=== PATIENT | female | born 1950 | race Caucasian/White ===

== ENCOUNTER → 2017-12-27 10:07 | Outpatient (CLI) | payer MEDICARE, OTHER, SELFPAY ==
[2017-12-27 12:44] LABS: Cholesterol 190 mg/dL (200); High Density Lipoprotein 83 mg/dL; Triglycerides 68 mg/dL; Very Low Density Lipoprotein 14 mg/dL (5-40)
== END ==
PROVIDERS: Family Provider Family Medicine; PCP Family Medicine; Visit Provider Family Medicine
DX: E78.5 Hyperlipidemia, unspecified (principal)
CPT/HCPCS: 36415; 80061

== ENCOUNTER → 2018-05-01 11:10 | Outpatient (CLI) | payer MEDICARE, OTHER, SELFPAY ==
[2018-05-01 11:26] LABS: Absolute Lymphocyte Count 1.53 X10^3/ul (0.83-4.51); Absolute Neutrophil Count 3.6 X10^3/uL (2.0-7.7); Basophil# 0.02 X10^3/uL; Basophil% 0.3 % (0-1); Eosinophil# 0.07 X10^3/uL; Eosinophils% 1.1 % (0-5); Hematocrit 40.5 % (37-47); Hemoglobin 13.4 g/dl (12.0-15.0); Lymphocyte # 1.53 X10^3/ul (4.0); Lymphocyte % 24.1 % (19-41); Mean Corp Hgb Conc 33.1 g/gl (32-36); Mean Corpuscular Hgb 28.6 pg (27.0-32.0); Mean Corpuscular Volume 86.4 fL (81-99); Monocyte# 1.17 X10^3/uL; Monocyte% 18.4 % (0-10); Neutrophil # 3.55 X10^3/uL (2.7-7.7); Neutrophil % 55.8 % (47-70); Platelet Count 180 K/mm3 (150-450); RBC Distribution Width CV 13.6 % (11.6-14.6); Red Blood Count 4.69 M/mm3 (4.2-5.4); White Blood Count 6.4 K/mm3 (4.4-11.0)
[2018-05-01 11:27] LABS: POSITIVE COUNT NO; POSITIVE DIFFERENTIAL NO; POSITIVE MORPHOLOGY NO
[2018-05-01 11:41] LABS: ALB/GLOB Ratio 0.9 RATIO (0.9-2.4); AST(SGOT) 16 U/L (15-37); Alanine Aminotransfer ALT/SGPT 24 U/L (13-56); Albumin, Serum 3.5 g/dL (3.2-5.0); Alkaline Phosphatase 73 U/L (45-117); Anion Gap 11 (5-15); BUN 8 mg/dL (7-18); BUN/Creat Ratio 13.2 RATIO (10-20); Calcium,Total 9.2 mg/dL (8.5-10.1); Chloride 103 mmol/L (98-107); Creatinine, Serum 0.61 mg/dL (0.55-1.02); EST Glomerular Filtration Rate 105 mL/min (>60); Est Glom Filt Rate - Afr Amer 127 mL/min (>60); Glucose 109 mg/dL (74-106); Potassium 3.7 mmol/L (3.5-5.1); Protein, Total 7.5 g/dL (6.4-8.2); Sodium Level 140 mmol/L (136-145)
== END ==
PROVIDERS: Family Provider Family Medicine; PCP Family Medicine; Visit Provider Nurse Practitioner Gerontology
DX: R10.32 Left lower quadrant pain (principal); R19.7 Diarrhea, unspecified
CPT/HCPCS: 36415; 74177; 80053; 82274; 83630; 85025; 87177; 87209; 87493; 87506; Q9967

== ENCOUNTER 2018-05-04 13:06 | Emergency (ER) | payer MEDICARE, OTHER, SELFPAY ==
[2018-05-04 13:06] VITALS: BP 150/59; PULSE 89; RESP 14; TEMP 36.8; O2SAT 98; BMI 22.0
[2018-05-04 15:15] VITALS: RESP 16; O2SAT 97
[2018-05-04] MEDS: 0.9% Normal Saline 1,000 ML 999 ML IV ×2 (15:16→16:14)
[2018-05-04 15:32] LABS: Anion Gap 9 (5-15); BUN 8 mg/dL (7-18); BUN/Creat Ratio 13.9 RATIO (10-20); Calcium,Total 8.7 mg/dL (8.5-10.1); Chloride 104 mmol/L (98-107); Creatinine, Serum 0.58 mg/dL (0.55-1.02); EST Glomerular Filtration Rate 111 mL/min (>60); Est Glom Filt Rate - Afr Amer 135 mL/min (>60); Estimated Creatinine Clearance 43.19 ml/min; Glucose 120 mg/dL (74-106); Potassium 3.5 mmol/L (3.5-5.1); Sodium Level 141 mmol/L (136-145)
[2018-05-04 15:41] LABS: Absolute Lymphocyte Count 1.05 X10^3/ul (0.83-4.51); Basophil# 0.02 X10^3/uL; Basophil% 0.3 % (0-1); Eosinophil# 0.13 X10^3/uL; Eosinophils% 2.2 % (0-5); Hematocrit 37.7 % (37-47); Hemoglobin 12.3 g/dl (12.0-15.0); Lymphocyte # 1.05 X10^3/ul (4.0); Lymphocyte % 17.6 % (19-41); Mean Corp Hgb Conc 32.6 g/gl (32-36); Mean Corpuscular Volume 85.9 fL (81-99); Mean Platelet Vol. 9.7 fl (6.2-12.0); Monocyte# 0.73 X10^3/uL; Monocyte% 12.2 % (0-10); Neutrophil # 4.03 X10^3/uL (2.7-7.7); Neutrophil % 67.4 % (47-70); Platelet Count 216 K/mm3 (150-450); RBC Distribution Width CV 13.6 % (11.6-14.6); RBC Distribution Width SD 42.8 fl (35.1-43.9); Red Blood Count 4.39 M/mm3 (4.2-5.4)
[2018-05-04 15:45] LABS: POSITIVE COUNT NO; POSITIVE DIFFERENTIAL NO; POSITIVE MORPHOLOGY NO
--- NOTE | 2018-05-04 16:03 | ED.VISSUMM ---
- ER Visit Summary Date of Service: 05/04/18 Chief Complaint: Diarrhea History of Present Illness: The patient is a [address] Tyler Myers. Her daughter works for Dr. Sanderson. She reports she has diarrhea that began 2 weeks ago. She reports is having approximately 12 times per day. States that as that happens proxy 15-20 minutes after eating. She states it is green. No black tarry stools. She reports that she has left lower quadrant abdominal pain. She is placed on Cipro and Flagyl 3 days ago and states pain is much improved after the antibiotics. She denies any fever or chills. No nausea or vomiting. Patient denies sick contacts. Has not been camping out of the country. No possible bad food exposure. Does drink well water, but others at home due as well and they are not ill. No recent antibiotic use. Physical Examination: Vitals: Stable. Afebrile. General: Well-nourished and well-developed. Head: Normocephalic atraumatic. Neck: Supple, no lymphadenopathy. No JVD. Nontender. Cardiovascular: Regular rate and rhythm. No murmurs. Respiratory: No respiratory distress. Clear to auscultation bilaterally. Abdominal: Soft, mild left lower quadrant tenderness to palpation, nondistended, normal bowel sounds. No guarding, rebound, or peritoneal signs. Back: Nontender. Extremities: Nontender, no edema. Skin: Normal color, no rash. Neurologic: Alert and oriented ?3. Cranial nerves II through XII are intact. Normal strength and sensation. Psych: Normal affect. Test Results: CBC is remarkable for lymphocytes of 18 and monocytes of 12. Chem-7 is more for glucose 120. Prior labs were reviewed. May 01 patient had a C. difficile that was negative. Stool culture that was negative. She did have fecal leukocytes and Hemoccult positive. CT showed colitis of the left hemicolon down to the rectosigmoid junction. Emergency Department Course and Treatment: Patient was given 2 L normal saline. She refused pain and nausea medications. States that she has never had a colonoscopy. Treatment Plan: Patient will be discharged with instructions to continue to push fluids. Follow-up with Dr. Sanderson in 3-5 days for another exam. Return to the emergency department for any worsening symptoms. Disposition: To home in improved and stable condition. Impression: 1. Diarrhea. This note was generated with [employer] dictation software. It may contain incorrect words, spelling, and punctuation that were not noted in review of the chart prior to signing ED Disposition - Plan for ED Patient: Disposition: Home or Assisted Living Chief Complaint: Diarrhea Instructions: Self-Care for Vomiting and Diarrhea Referrals: Tyler Myers DO [Primary Care Provider] - Shanda Sanderson DO [NON-STAFF] - 3-5 Days
--- NOTE | 2018-05-04 16:07 | ED.DCSUM_ITS ---
- ER Visit Summary Date of Service: 05/04/18 Chief Complaint: Diarrhea History of Present Illness: The patient is a [address] Tyler Myers. Her daughter works for Dr. Sanderson. She reports she has diarrhea that began 2 weeks ago. She reports is having approximately 12 times per day. States that as that happens proxy 15-20 minutes after eating. She states it is green. No black tarry stools. She reports that she has left lower quadrant abdominal pain. She is placed on Cipro and Flagyl 3 days ago and states pain is much improved after the antibiotics. She denies any fever or chills. No nausea or vomiting. Patient denies sick contacts. Has not been camping out of the country. No possible bad food exposure. Does drink well water, but others at home due as well and they are not ill. No recent antibiotic use. Physical Examination: Vitals: Stable. Afebrile. General: Well-nourished and well-developed. Head: Normocephalic atraumatic. Neck: Supple, no lymphadenopathy. No JVD. Nontender. Cardiovascular: Regular rate and rhythm. No murmurs. Respiratory: No respiratory distress. Clear to auscultation bilaterally. Abdominal: Soft, mild left lower quadrant tenderness to palpation, nondistended , normal bowel sounds. No guarding, rebound, or peritoneal signs. Back: Nontender. Extremities: Nontender, no edema. Skin: Normal color, no rash. Neurologic: Alert and oriented ?3. Cranial nerves II through XII are intact. Normal strength and sensation. Psych: Normal affect. Test Results: CBC is remarkable for lymphocytes of 18 and monocytes of 12. Chem -7 is more for glucose 120. Prior labs were reviewed. May 01 patient had a C. difficile that was negative. Stool culture that was negative. She did have fecal leukocytes and Hemoccult positive. CT showed colitis of the left hemicolon down to the rectosigmoid junction. Emergency Department Course and Treatment: Patient was given 2 L normal saline. She refused pain and nausea medications. States that she has never had a colonoscopy. Treatment Plan: Patient will be discharged with instructions to continue to push fluids. Follow-up with Dr. Sanderson in 3-5 days for another exam. Return to the emergency department for any worsening symptoms. Disposition: To home in improved and stable condition. Impression: 1. Diarrhea. This note was generated with [employer] dictation software. It may contain incorrect words, spelling, and punctuation that were not noted in review of the chart prior to signing ED Disposition - Plan for ED Patient: Disposition: Home or Assisted Living Chief Complaint: Diarrhea Instructions: Self-Care for Vomiting and Diarrhea Referrals: Tyler Myers DO [Primary Care Provider] - Shanda Sanderson DO [NON-STAFF] - 3-5 Days
[2018-05-04 16:47] VITALS: PULSE 78; RESP 16; O2SAT 100
== END 2018-05-04 16:50 | disposition home or self-care (01) ==
LOC: ED 15:16
PROVIDERS: Emergency Provider Emergency Medicine; Family Provider Family Medicine; PCP Family Medicine
DX: R19.7 Diarrhea, unspecified (principal); K52.9 Noninfective gastroenteritis and colitis, unspecified; R51 Headache; E78.00 Pure hypercholesterolemia, unspecified; Z90.710 Acquired absence of both cervix and uterus; Z79.899 Other long term (current) drug therapy
CPT/HCPCS: 80048; 85025; 96360; 96361; 99283; J7030; A4216

== ENCOUNTER → 2018-07-16 09:02 | Outpatient (CLI) | payer MEDICARE, OTHER, SELFPAY ==
[2018-07-10 11:06] VITALS: BMI 21.8
[2018-07-16 12:59] LABS: Cholesterol 201 mg/dL (200); High Density Lipoprotein 63 mg/dL; Triglycerides 108 mg/dL; Very Low Density Lipoprotein 22 mg/dL (5-40)
== END ==
PROVIDERS: Family Provider Family Medicine; PCP Family Medicine; Referring Provider Family Medicine; Visit Provider Family Medicine
DX: E78.5 Hyperlipidemia, unspecified (principal)
CPT/HCPCS: 36415; 80061

== ENCOUNTER → 2018-09-24 07:22 | Outpatient (CLI) | payer MEDICARE, OTHER, SELFPAY ==
--- NOTE | 2018-09-24 07:24 | BI_ITS ---
MAMMOGRAPHY - BILATERAL SCREENING REASON FOR EXAM: Female, 68 years old. Routine annual screening examination. PERTINENT HISTORY: Non-contributory. TECHNIQUE: Digital bilateral breast meagan (3D mammographic acquisition) in the CC and MLO projections. 2-D mediolateral oblique (MLO) and craniocaudad (CC) views of both breasts were obtained. CAD: Full Field Digital Mammography with Computer Added Detection was performed. COMPARISON: Comparison is made with prior study dated July 07, 2012 and March 24, 2011. FINDINGS: Breast Composition: The breasts are heterogeneously dense, which may obscure small masses. There are no dominant masses or suspicious calcifications. No other significant abnormalities are identified. There has been no significant change since the prior study. BI/SCREENING MAMM (CAD), BILAT IMPRESSION: Stable bilateral screening mammogram. Yearly follow-up mammogram recommended. (A) ASSESSMENT CATEGORY: BIRADS Category 1: Negative. A letter regarding these results will be sent to the patient by the facility within 30 days. Approximately 10% of breast cancers are not detected by mammography. A normal mammogram should not delay biopsy of a clinically suspicious abnormality. [id number] Electronically Signed: Carrington John MD at 8:40 EST , Service support ,
== END ==
PROVIDERS: Family Provider Family Medicine; PCP Family Medicine; Referring Provider Family Medicine; Visit Provider Family Medicine
DX: Z12.31 Encounter for screening mammogram for malignant neoplasm of breast (principal)
CPT/HCPCS: 77063; 77067

== ENCOUNTER → 2019-02-13 | Outpatient (CLI) | payer MEDICARE, OTHER, SELFPAY ==
[2019-02-13 13:23] VITALS: BMI 21.8
[2019-02-13 15:56] LABS: ALB/GLOB Ratio 1.2 RATIO (0.9-2.4); AST(SGOT) 18 U/L (15-37); Alanine Aminotransfer ALT/SGPT 27 U/L (13-56); Alkaline Phosphatase 62 U/L (45-117); Anion Gap 7 (5-15); BUN 16 mg/dL (7-18); BUN/Creat Ratio 25.5 RATIO (10-20); CRP < 2.90 mg/L (0.0-3.0); Calcium,Total 9.4 mg/dL (8.5-10.1); Chloride 104 mmol/L (98-107); Creatinine, Serum 0.63 mg/dL (0.55-1.02); EST Glomerular Filtration Rate 101 mL/min (>60); Est Glom Filt Rate - Afr Amer 122 mL/min (>60); Globulin 3.4 g/dL (2.2-4.2); Glucose 107 mg/dL (74-106); Potassium 3.8 mmol/L (3.5-5.1); Protein, Total 7.4 g/dL (6.4-8.2); Sodium Level 140 mmol/L (136-145)
[2019-02-13 16:06] LABS: Erythrocyte Sedimentation Rate 3 mm/hr (0-30)
== END | disposition home or self-care (01) ==
LOC: MTLAB 14:00
PROVIDERS: Family Provider Family Medicine; PCP Family Medicine; Referring Provider Family Medicine; Visit Provider Family Medicine
DX: M79.10 Myalgia, unspecified site (principal); M79.606 Pain in leg, unspecified
CPT/HCPCS: 36415; 80053; 85652; 86140

== ENCOUNTER → 2019-02-27 10:46 | Outpatient (CLI) | payer MEDICARE, OTHER, SELFPAY ==
[2019-02-13 13:23] VITALS: BMI 21.8
--- NOTE | 2019-02-27 10:48 | ART_ITS ---
Reason For Study: leg pain Left Segmental Pressures Left brachial= 198mmHg. Left posterior tibial artery = 207mmHg. Left dorsalis pedis artery = 206mmHg. The left dorsalis pedis waveforms are triphasic. The left posterior tibial artery waveforms are triphasic. Right Segmental Pressures Right brachial= 199mmHg. Right posterior tibial artery = 211mmHg. Right dorsalis pedis artery = 215mmHg. The right posterior tibial artery waveforms are triphasic. The right dorsalis pedis waveforms are triphasic. Indices The right ankle brachial index by the posterior tibial artery is 1.06. The right ankle brachial index by the dorsalis pedis is 1.08. The left ankle brachial index by the dorsalis pedis is 1.04. The left ankle brachial index by the posterior tibial artery is 1.04. Interpretation Summary Normal resting bilateral lower extremity non-invasive arterial exam with normal indices and waveforms. Ordering Physician: Tyler Myers Performed By: BUDDY MC RVT
== END ==
PROVIDERS: Family Provider Family Medicine; PCP Family Medicine; Referring Provider Family Medicine; Visit Provider Family Medicine
DX: M79.606 Pain in leg, unspecified (principal); I73.9 Peripheral vascular disease, unspecified
CPT/HCPCS: 93922

== ENCOUNTER → 2019-05-29 12:05 | Outpatient (CLI) | payer MEDICARE, OTHER, SELFPAY ==
[2019-03-20 09:40] VITALS: BMI 21.4
--- NOTE | 2019-05-29 12:12 | MRI_ITS ---
STUDY: MRI CERVICAL SPINE WITH AND WITHOUT CONTRAST REASON FOR EXAM: Female, 68 years old. Tinnitus TECHNIQUE: Standardized fat and water weighted pulse sequences were obtained in the sagittal and axial following administration of IV Dotarem 9. COMPARISON: None FINDINGS: Normal foramen magnum and brainstem-cervical cord junction. Normal craniovertebral junction. Normal anterior atlantoaxial articulation. Normal odontoid process. Normal cervical lordosis. Normal vertebral bodies and posterior osseous elements. C2-3: Normal endplates. Normal disc height, signal and morphology. Normal central canal and intervertebral neural foramina. C3-4: Normal endplates. Normal disc height, signal and morphology. Normal central canal and intervertebral neural foramina. C4-5: Normal endplates. Normal disc height, signal and morphology. Normal central canal and intervertebral neural foramina. C5-6: Normal endplates. Normal disc height, signal and morphology. Normal central canal and intervertebral neural foramina. C6-7: Normal endplates. Normal disc height, signal and morphology. Normal central canal and intervertebral neural foramina. C7-T1: Normal endplates. Normal disc height, signal and morphology. Normal central canal and intervertebral neural foramina. Normal cervical cord. Normal visualized soft tissue structures. MRI/Spine Cervical W/WO Contrast IMPRESSION: Normal unenhanced and enhanced MR examination of the cervical spine. Electronically Signed: Grant Mancuso MD at 17:00 EDT , Service support ,
--- NOTE | 2019-05-29 12:12 | MRI_ITS ---
STUDY: MRI BRAIN WITH AND WITHOUT CONTRAST REASON FOR EXAM: Female, 68 years old. Dizziness and hearing loss TECHNIQUE: Standardized multiplanar fat and water weighted pulse sequences were obtained. IV Gadavist 9 was administered for the contrast portion of the examination. COMPARISON: None. FINDINGS: There is mild cerebral atrophy with widening of the extra-axial spaces and ventricular dilatation. There are multiple white matter hyperintensities, distributed throughout the deep white matter tracts of the cerebral hemispheres, consistent with moderate chronic white matter ischemic changes. There is no evidence for recent intracranial ischemia or other cause of cytotoxic edema on diffusion weighted imaging (DWI). Normal bilateral basal ganglia. Normal thalami. There is no extra-axial fluid accumulation. Normal flow voids within the major intracranial circulation suggesting patency by spin echo criteria. Normal venous enhancement. There is no enhancing intra-axial or extra-axial abnormality. Normal sella turcica, pituitary gland, infundibular stalk, optic chiasm and hypothalamus. Normal tectal plate and pineal gland. Normal midbrain, ferny and medulla. Normal cerebellum. Normal basal cisterns. Normal bilateral temporal bones. Normal bilateral internal auditory canals. No demonstrated orbital abnormality, within the constraints of a routine brain study. Air-fluid level right maxillary sinus. Normal calvarium and skull base. Normal visualized soft tissue structures. Normal visualized upper cervical spine. MRI/Brain W/WO Contrast IMPRESSION: Right maxillary sinusitis. Moderate nonspecific white matter disease. Electronically Signed: rGant Mancuso MD at 16:44 EDT , Service support ,
[2019-05-29 12:35] LABS: CREATININE FINGERSTICK < 0.6 mg/dL (0.55-1.02); EGFR FINGERSTICK > 60.0000 mL/min (>60)
== END ==
PROVIDERS: Family Provider Family Medicine; PCP Family Medicine; Referring Provider Otolaryngology; Visit Provider Otolaryngology
DX: H93.13 Tinnitus, bilateral (principal)
CPT/HCPCS: 70553; 72156; A9575

== ENCOUNTER → 2019-07-23 11:03 | Outpatient (CLI) | payer MEDICARE, OTHER, SELFPAY ==
[2019-07-23 10:21] VITALS: BMI 21.4
[2019-07-23 13:13] LABS: Cholesterol 219 mg/dL (200); High Density Lipoprotein 74 mg/dL; Triglycerides 129 mg/dL; Very Low Density Lipoprotein 26 mg/dL (5-40)
== END ==
PROVIDERS: Family Provider Family Medicine; PCP Family Medicine; Visit Provider Family Medicine
DX: E78.5 Hyperlipidemia, unspecified (principal)
CPT/HCPCS: 36415; 80061

== ENCOUNTER 2020-02-20 10:00 | Outpatient (RCR) | payer MEDICARE, OTHER, SELFPAY ==
[2019-07-23 10:21] VITALS: BMI 21.4
--- NOTE | 2020-02-07 09:39 | HP.PTEVAL_ITS ---
Patient's Visit Information AUDREY BETTS is a 69 year old F referred to Physical Therapy by Dr. Richard Odonnell MD with a diagnosis of L BPPV. Date of Evaluation: 02/07/20 Physical Therapist: Richard Roberson, DPT, OCS, CSCS - Visit Plan Frequency: 1x/Week Duration: 4 Weeks Plan: weekly x 2-4 as needed for positional treaatment and exercises and balance checks - Subjective Has alot of vertigo. Had it a year ago and saw kat which did not help. It went away over the winter btu has come back. Dr. Odonnell is checking hearing loss. MRI did not show anything. Dizzyness came back 3 weeks ago for no reason looking up working on house and spun for a few minutes. Looking down can cause it. Feels normal in between episode. Lying in bed causes it but not as bad, gone in a few seconds. Activities are pretty normal. Retired. Spends day c leanign house and working in yard and babysitting grandchildren. - Objective Walks well and good balance. cervical AROM WFL adn painfree. No falls or feelings of unsteadiness described. UE AROM WFL and without deficits today. R yissel has some quick dizzyness and possible down torsional nystagmus slightly. L tash had 15 seconds of obvious spinning adn obvious upward torsional nystagmus. Treated with L Tesfaye and then negative HD test L. - Balance Scores Functional Gait Assessment Score: 27 % Disability: 10.0000 CATSIB Score (Max score 120 seconds): 98 - Goals Goal 1:: Abolish dizzyness with lying and looking up. Goal Time Frame: 2-4 Weeks Goal 2:: Pt feel 100% back to normal and confident with activity Goal Time Frame: 2-4 Weeks Goal 3:: score <2 on DHI Goal Time Frame: 2-4 Weeks - Rehabilitation Potential Physical Therapy Diagnosis: L BPPV canalithiasis Rehabilitation Potential: Excellent - Anticipated Interventions Patient/Client Instruction: Educate patient on: Condition, Plan of Care For the Purpose of:: To increase tolerance to activity/condition/position Comment: positional treatment adn ex For the Purpose of:: To increase tolerance to activity/condition/position Thank you for the opportunity to evaluate your patient. For Medicare and Medicare HMO plans, please review the plan of care and approve it. It will need to be FAXED BACK to us at [phone] for Medicare purposes. For Medicare only, by signing this I certify the plan of care. Please let me know if there are questions or concerns regarding this plan of care. Physician Signature: Date:
--- NOTE | 2020-02-20 10:16 | HP.PTDCSUM ---
It has been my pleasure to treat AUDREY BETTS referred by Dr. Richard Odonnell MD, with the diagnosis of L BPPV for a total of 3 visit(s). Discharge Date: Please see the following information for a summary of their discharge status. Subjective: No dizzyness since last week. Balance is OK, no falls. Activity is normal at home. Nothing with doctor until therapy is over. % Improvement: 100 Objective/Function: FGA +3 today and no problems standing on foam with eyes closed. - B hallpike and roll tests. Walking well adn ready to be done, activities normal. rolling today and bending over do not cause symptoms. Goal 1:: Abolish dizzyness with lying and looking up. Goal Progress: Goal Met Goal 2:: Pt feel 100% back to normal and confident with activity Goal Progress: Goal Met Goal 3:: score <2 on DHI Goal Progress: Progressing Plan: d/c, pt to contact doctor regarding f/u that she says he desired when PT was over. If there are questions or concerns regarding this patient's physical therapy, please feel free to call me at [phone]. Thank you for the referral of this patient. Sincerely, Richard Roberson, DPT, OCS, CSCS
== END 2020-02-20 19:00 | disposition home or self-care (01) ==
LOC: PT 10:00
PROVIDERS: PCP Family Medicine; Referring Provider Otolaryngology; Visit Provider Otolaryngology
DX: H81.12 Benign paroxysmal vertigo, left ear (principal)
CPT/HCPCS: 97161; 97164; 97530

== ENCOUNTER → 2020-07-08 10:08 | Outpatient (CLI) | payer MEDICARE, OTHER, SELFPAY ==
[2020-07-08 09:08] VITALS: BMI 21.4
[2020-07-08 12:40] LABS: ALB/GLOB Ratio 1.2 RATIO (0.9-2.4); AST(SGOT) 13 U/L (15-37); Alanine Aminotransfer ALT/SGPT 27 U/L (13-56); Albumin, Serum 4.1 g/dL (3.2-5.0); Alkaline Phosphatase 64 U/L (45-117); Anion Gap 3 (5-15); BUN 14 mg/dL (7-18); BUN/Creat Ratio 23.5 RATIO (10-20); Calcium,Total 9.7 mg/dL (8.5-10.1); Chloride 106 mmol/L (98-107); Cholesterol 280 mg/dL (200); EST Glomerular Filtration Rate 106 mL/min (>60); Est Glom Filt Rate - Afr Amer 128 mL/min (>60); Globulin 3.5 g/dL (2.2-4.2); Glucose 101 mg/dL (74-106); High Density Lipoprotein 80 mg/dL; Protein, Total 7.6 g/dL (6.4-8.2); Sodium Level 139 mmol/L (136-145); Triglycerides 181 mg/dL; Very Low Density Lipoprotein 36 mg/dL (5-40)
== END ==
PROVIDERS: PCP Family Medicine; Referring Provider Family Medicine; Visit Provider Family Medicine
DX: E78.5 Hyperlipidemia, unspecified (principal)
CPT/HCPCS: 36415; 80053; 80061

== ENCOUNTER → 2020-08-19 11:08 | Outpatient (CLI) | payer MEDICARE, OTHER, SELFPAY ==
[2020-07-08 09:08] VITALS: BMI 21.4
--- NOTE | 2020-08-19 11:10 | BI_ITS ---
MAMMOGRAPHY - BILATERAL SCREENING REASON FOR EXAM: Female, 70 years old. Routine annual screening examination. PERTINENT HISTORY: Non-contributory. TECHNIQUE: Digital bilateral breast chanel (3D mammographic acquisition) in the CC and MLO projections. 2-D mediolateral oblique (MLO) and craniocaudad (CC) views of both breasts were obtained. CAD: Full Field Digital Mammography with Computer Added Detection was performed. COMPARISON: Comparison is made with prior study dated 09/16/2018 and 07/07/2012. FINDINGS: Breast Composition: The breasts are heterogeneously dense, which may obscure small masses. There are no dominant masses or suspicious calcifications. No other significant abnormalities are identified. There has been no significant change since the prior study. BI/SCREEN MAMM (CAD) W/CHANEL BILAT IMPRESSION: Stable bilateral screening mammogram. Yearly follow-up mammogram recommended. (A) ASSESSMENT CATEGORY: BIRADS Category 1: Negative. A letter regarding these results will be sent to the patient by the facility within 30 days. Approximately 10% of breast cancers are not detected by mammography. A normal mammogram should not delay biopsy of a clinically suspicious abnormality. [id number] Electronically Signed: Carrington John, at 12:56 EST , Service support ,
== END ==
PROVIDERS: PCP Family Medicine; Referring Provider Family Medicine; Visit Provider Family Medicine
DX: Z12.31 Encounter for screening mammogram for malignant neoplasm of breast (principal)
CPT/HCPCS: 77063; 77067

== ENCOUNTER → 2021-01-06 09:43 | Outpatient (CLI) | payer MEDICARE, OTHER, SELFPAY ==
[2021-01-06 09:03] VITALS: BMI 21.4
[2021-01-06 12:44] LABS: Cholesterol 269 mg/dL (200); High Density Lipoprotein 87 mg/dL; Triglycerides 109 mg/dL; Very Low Density Lipoprotein 22 mg/dL (5-40)
== END ==
PROVIDERS: PCP Family Medicine; Referring Provider Family Medicine; Visit Provider Family Medicine
DX: E78.01 Familial hypercholesterolemia (principal)
CPT/HCPCS: 36415; 80061

== ENCOUNTER 2021-04-13 12:30 | Outpatient (RCR) | payer MEDICARE, OTHER, SELFPAY ==
[2021-01-06 09:03] VITALS: BMI 21.4
--- NOTE | 2021-03-23 13:32 | HP.PTEVAL ---
Patient's Visit Information AUDREY BETTS is a 70 year old F referred to Physical Therapy by Dr. Richard Odonnell MD with a diagnosis of BPPV. Date of Evaluation: 03/23/21 Physical Therapist: Richard Roberson, LAUREN, OCS, CSCS - Visit Plan Frequency: 1x/Week Duration: 2-4 Weeks Plan: weekly x 2-4 as needed for. positional treatments and ex. - Subjective Has vertigo and for almost a year and is worsening. Had to go back to ENT for yearly hearing test. If she lies on her left side she gets worse and with some daytime activity. Had an MRI in 2019 which was OK. Gets dizzyness that lasts for a couple minutes and other times shorter. Usually in response to rolling L and sometimes looking up. Feels normal in between episodes. Usually gets episodes daily at least. Activites are normal, no falls. Balance feels OK when not dizzy. - Objective Walks normal and with good balance today. Trasnitions normal and I. steps reciprocal without rail today. Cervical aROM WFL and without pain today. - R halpike elie. + L hallpike elie for up torsional nystagmus of 5 second with dizzyness. Treated with L Tesfaye then another positive test L then Tesfaye and then negative test. - Balance/Special Test Scores Functional Gait Assessment Score: 30 % Disability: 0 Dizziness Score: 18 - Goals Goal 1:: abolish dizzyness with turning in bed Goal Time Frame: 2-4 Weeks Goal 2:: Pt feel dizzyness abolished with daily activity Goal Time Frame: 2-4 Weeks Goal 3:: Less than 5 DHI score. Goal Time Frame: 2-4 Weeks - Rehabilitation Potential Physical Therapy Diagnosis: BPPV and resulting dizzyness. Rehabilitation Potential: Good - Anticipated Interventions Patient/Client Instruction: Educate patient on: Condition, Risk Factors For the Purpose of:: To increase tolerance to activity/condition/position Comment: postional ex and treatments For the Purpose of:: To increase tolerance to activity/condition/position Thank you for the opportunity to evaluate your patient. For Medicare and Medicare HMO plans, please review the plan of care and approve it. It will need to be FAXED BACK to us at [phone] for Medicare purposes. For Medicare only, by signing this I certify the plan of care. Please let me know if there are questions or concerns regarding this plan of care. Physician Signature: Date:
--- NOTE | 2021-04-13 12:54 | HP.PTDCSUM ---
It has been my pleasure to treat AUDREY BETTS referred by Dr. Richard Odonnell MD, with the diagnosis of BPPV for a total of 4 visit(s). Discharge Date: 04/13/21 Please see the following information for a summary of their discharge status. Subjective: R leg got rash from meds and got into system. Mostly better now. Dizzyness is fine. Doing BD 8 reps daily and no dizzyness. No other dizzyness. % Improvement: 100 Objective/Function: - B hallpike elie. Good balance. Much improved overall and feeling 100% normal Goal 1:: abolish dizzyness with turning in bed Goal Progress: Goal Met Goal 2:: Pt feel dizzyness abolished with daily activity Goal Progress: Goal Met Goal 3:: Less than 5 DHI score. Goal Progress: Goal Met Plan: d/c If there are questions or concerns regarding this patient's physical therapy, please feel free to call me at [phone]. Thank you for the referral of this patient. Sincerely, Richard Roberson, DPT, OCS, CSCS Balance/Gait/Functional tests - Balance/Special Test Scores Functional Gait Assessment Score: 29 % Disability: 3.3400 Dizziness Score: 2
== END 2021-04-13 15:10 | disposition home or self-care (01) ==
LOC: PT 12:30
PROVIDERS: PCP Family Medicine; Referring Provider Otolaryngology; Visit Provider Otolaryngology
DX: H81.12 Benign paroxysmal vertigo, left ear (principal)
CPT/HCPCS: 97161; 97164; 97530

== ENCOUNTER → 2021-07-07 10:15 | Outpatient (CLI) | payer MEDICARE, OTHER, SELFPAY ==
[2021-07-07 13:01] LABS: Cholesterol 187 mg/dL (200); High Density Lipoprotein 79 mg/dL; Triglycerides 90 mg/dL; Very Low Density Lipoprotein 18 mg/dL (5-40)
== END ==
PROVIDERS: PCP Family Medicine; Referring Provider Family Medicine; Visit Provider Family Medicine
DX: E78.01 Familial hypercholesterolemia (principal)
CPT/HCPCS: 36415; 80061

== ENCOUNTER → 2022-01-05 | Outpatient (CLI) | payer MEDICARE, OTHER, SELFPAY ==
[2022-01-05 12:37] LABS: ALB/GLOB Ratio 1.2 RATIO (0.9-2.4); AST(SGOT) 23 U/L (15-37); Alanine Aminotransfer ALT/SGPT 36 U/L (13-56); Albumin, Serum 4.2 g/dL (3.2-5.0); Alkaline Phosphatase 63 U/L (45-117); Anion Gap 5 (5-15); BUN 14 mg/dL (7-18); BUN/Creat Ratio 27.2 RATIO (10-20); Calcium,Total 9.6 mg/dL (8.5-10.1); Chloride 103 mmol/L (98-107); Cholesterol 195 mg/dL (200); Creatinine, Serum 0.51 mg/dL (0.55-1.02); EST Glomerular Filtration Rate 125 mL/min (>60); Est Glom Filt Rate - Afr Amer 152 mL/min (>60); Globulin 3.4 g/dL (2.2-4.2); Glucose 110 mg/dL (74-106); High Density Lipoprotein 80 mg/dL; Potassium 4.3 mmol/L (3.5-5.1); Protein, Total 7.6 g/dL (6.4-8.2); Sodium Level 138 mmol/L (136-145); Triglycerides 132 mg/dL; Very Low Density Lipoprotein 26 mg/dL (5-40)
== END | disposition home or self-care (01) ==
LOC: BIMLAB 10:21
PROVIDERS: PCP Family Medicine; Referring Provider Family Medicine; Visit Provider Family Medicine
DX: E78.01 Familial hypercholesterolemia (principal); I10 Essential (primary) hypertension
CPT/HCPCS: 36415; 80053; 80061

== ENCOUNTER → 2022-07-12 | Outpatient (CLI) | payer MEDICARE, OTHER, SELFPAY ==
[2022-07-12 12:15] LABS: ALB/GLOB Ratio 1.1 RATIO (0.9-2.4); AST(SGOT) 13 U/L (15-37); Alanine Aminotransfer ALT/SGPT 30 U/L (13-56); Albumin, Serum 3.9 g/dL (3.2-5.0); Alkaline Phosphatase 64 U/L (45-117); Anion Gap 5 (5-15); BUN 13 mg/dL (7-18); BUN/Creat Ratio 25.7 RATIO (10-20); Calcium,Total 9.4 mg/dL (8.5-10.1); Chloride 103 mmol/L (98-107); Cholesterol 260 mg/dL (200); EST Glomerular Filtration Rate 128 mL/min (>60); Est Glom Filt Rate - Afr Amer 155 mL/min (>60); Globulin 3.6 g/dL (2.2-4.2); Glucose 102 mg/dL (74-106); High Density Lipoprotein 79 mg/dL; Potassium 3.9 mmol/L (3.5-5.1); Protein, Total 7.5 g/dL (6.4-8.2); Sodium Level 139 mmol/L (136-145); Triglycerides 132 mg/dL; Very Low Density Lipoprotein 26 mg/dL (5-40)
== END | disposition home or self-care (01) ==
LOC: BIMLAB 10:43
PROVIDERS: PCP Family Medicine; Referring Provider Family Medicine; Visit Provider Family Medicine
DX: E78.01 Familial hypercholesterolemia (principal)
CPT/HCPCS: 36415; 80053; 80061

== ENCOUNTER → 2023-01-19 | Outpatient (CLI) | payer MEDICARE, OTHER, SELFPAY ==
[2023-01-19 15:50] LABS: ALB/GLOB Ratio 1.3 RATIO (0.9-2.4); AST(SGOT) 15 U/L (15-37); Alanine Aminotransfer ALT/SGPT 24 U/L (13-56); Albumin, Serum 4.1 g/dL (3.2-5.0); Alkaline Phosphatase 62 U/L (45-117); Anion Gap 6 (5-15); BUN 10 mg/dL (7-18); BUN/Creat Ratio 15.9 RATIO (10-20); Calcium,Total 9.7 mg/dL (8.5-10.1); Chloride 104 mmol/L (98-107); Cholesterol 187 mg/dL (200); Creatinine, Serum 0.63 mg/dL (0.55-1.02); EST Glomerular Filtration Rate 99 mL/min (>60); Est Glom Filt Rate - Afr Amer 120 mL/min (>60); Globulin 3.1 g/dL (2.2-4.2); Glucose 104 mg/dL (74-106); High Density Lipoprotein 79 mg/dL; Potassium 3.9 mmol/L (3.5-5.1); Protein, Total 7.2 g/dL (6.4-8.2); Sodium Level 140 mmol/L (136-145); Triglycerides 125 mg/dL; Very Low Density Lipoprotein 25 mg/dL (5-40)
== END | disposition home or self-care (01) ==
LOC: BIMLAB 13:33
PROVIDERS: PCP Family Medicine; Referring Provider Family Medicine; Visit Provider Family Medicine
DX: E78.01 Familial hypercholesterolemia (principal); I10 Essential (primary) hypertension
CPT/HCPCS: 36415; 80053; 80061

== ENCOUNTER → 2023-01-26 | Outpatient (CLI) | payer MEDICARE, OTHER, SELFPAY ==
--- NOTE | 2023-01-26 13:48 | BD_ITS ---
STUDY: DUAL ENERGY X-RAY ABSORPTIOMETRY / DXA REASON FOR EXAM: Female, 72 years old. Osteoporosis TECHNIQUE: Bone Mineral Density (BMD) measurements of lumbar spine and bilateral hips were obtained. COMPARISON: Comparison is made with prior study dated May 29, 2014. FINDINGS: Lumbar Spine (L1-L4): g/cm2 (0.710) / T-score (-3.1) / Z-score (-0.9) Findings are suggestive of osteoporosis with a high fracture risk. Left Femur Total: g/cm2 (0.715) / T-score (-1.9) / Z-score (-0.3) Left Femoral Neck: g/cm2 (0.641) / T-score (-1.9) / Z-score (0.0) Right Femur Total: g/cm2 (0.709) / T-score (-1.9) / Z-score (-0.3) Right Femoral Neck: g/cm2 (0.541) / T-score (-2.8) / Z-score (-0.9) The T-Scores on the most recent prior examination were: Lumbar Spine (L1-L4): There has been worsening of bone density since the previous examination. Left Femur Total: which represents a worsening of 12.4%. Right Femur Total: which represents a worsening of 12.9%. BD/Dexa Bone Density Study IMPRESSION: The patient is considered osteoporotic as outlined below according to World Kai Organization (WHO) criteria with a high fracture risk. There has been worsening of bone density since the previous examination. Reference Information: The T-score is the number of standard deviations above or below the standard which is normal for young adults at their peak bone mineral density. The World Health Organization (WHO) interprets the T-scores as follows: Above -1 Normal bone density Between -1 and -2.5 Osteopenia Equal to / or below -2.5 Osteoporosis As a practical clinical guideline, osteopenia may be graded as follows: Mild -1 through -1.5 Moderate -1.6 through -2.0 Severe -2.1 through -2.4 The Z-score is the number of standard deviations above or below age-matched controls. A Z-score of less than -1.5 would be considered abnormal. References: 1. NIH Osteoporosis and Related Bone Diseases www osteo.org 2. International Society for Clinical Densitometry www iscd.org 3. National Osteoporosis Foundation www nof.org Electronically Signed: Carrington John MD at 14:47 EDT ,
== END | disposition home or self-care (01) ==
LOC: OPBD 13:39
PROVIDERS: PCP Family Medicine; Referring Provider Family Medicine; Visit Provider Family Medicine
DX: M81.0 Age-related osteoporosis without current pathological fracture (principal)
CPT/HCPCS: 77080

== ENCOUNTER → 2023-07-26 | Outpatient (CLI) | payer MEDICARE, OTHER, SELFPAY ==
[2023-07-26 13:04] LABS: ALB/GLOB Ratio 1.1 RATIO (0.9-2.4); AST(SGOT) 20 U/L (15-37); Alanine Aminotransfer ALT/SGPT 30 U/L (13-56); Albumin, Serum 3.9 g/dL (3.2-5.0); Alkaline Phosphatase 60 U/L (45-117); Anion Gap 3 (5-15); BUN 14 mg/dL (7-18); Calcium,Total 9.4 mg/dL (8.5-10.1); Chloride 106 mmol/L (98-107); Cholesterol 190 mg/dL (200); Creatinine, Serum 0.61 mg/dL (0.55-1.02); EST Glomerular Filtration Rate 102 mL/min (>60); Est Glom Filt Rate - Afr Amer 124 mL/min (>60); Globulin 3.6 g/dL (2.2-4.2); Glucose 110 mg/dL (74-106); High Density Lipoprotein 83 mg/dL; Potassium 4.4 mmol/L (3.5-5.1); Protein, Total 7.5 g/dL (6.4-8.2); Sodium Level 139 mmol/L (136-145); Triglycerides 111 mg/dL; Very Low Density Lipoprotein 22 mg/dL (5-40)
== END | disposition home or self-care (01) ==
LOC: BIMLAB 09:56
PROVIDERS: PCP Family Medicine; Referring Provider Family Medicine; Visit Provider Family Medicine
DX: E78.01 Familial hypercholesterolemia (principal); I10 Essential (primary) hypertension; E78.5 Hyperlipidemia, unspecified
CPT/HCPCS: 36415; 80053; 80061

== ENCOUNTER → 2024-01-24 | Outpatient (CLI) | payer MEDICARE, OTHER, SELFPAY ==
[2024-01-24 12:56] LABS: ALB/GLOB Ratio 1.2 RATIO (0.9-2.4); AST(SGOT) 22 U/L (15-37); Alanine Aminotransfer ALT/SGPT 34 U/L (13-56); Alkaline Phosphatase 55 U/L (45-117); Anion Gap 5 (5-15); BUN 13 mg/dL (7-18); BUN/Creat Ratio 25.9 RATIO (10-20); Calcium,Total 9.2 mg/dL (8.5-10.1); Chloride 106 mmol/L (98-107); Cholesterol 201 mg/dL (200); EST Glomerular Filtration Rate 128 mL/min (>60); Est Glom Filt Rate - Afr Amer 155 mL/min (>60); Globulin 3.3 g/dL (2.2-4.2); Glucose 105 mg/dL (74-106); High Density Lipoprotein 75 mg/dL; Protein, Total 7.3 g/dL (6.4-8.2); Sodium Level 139 mmol/L (136-145); Triglycerides 124 mg/dL; Very Low Density Lipoprotein 25 mg/dL (5-40)
== END | disposition home or self-care (01) ==
LOC: BIMLAB 09:53
PROVIDERS: PCP Family Medicine; Referring Provider Family Medicine; Visit Provider Family Medicine
DX: E78.5 Hyperlipidemia, unspecified (principal); I10 Essential (primary) hypertension
CPT/HCPCS: 36415; 80053; 80061

== ENCOUNTER → 2024-07-16 | Outpatient (CLI) | payer MEDICARE, OTHER, SELFPAY ==
[2024-07-16 12:36] LABS: ALB/GLOB Ratio 1.2 RATIO (0.9-2.4); AST(SGOT) 19 U/L (15-37); Alanine Aminotransfer ALT/SGPT 26 U/L (13-56); Alkaline Phosphatase 59 U/L (45-117); Anion Gap 8 (5-15); BUN 13 mg/dL (7-18); BUN/Creat Ratio 23.6 RATIO (10-20); Calcium,Total 9.4 mg/dL (8.5-10.1); Chloride 105 mmol/L (98-107); Cholesterol 190 mg/dL (200); Creatinine, Serum 0.55 mg/dL (0.55-1.02); EST Glomerular Filtration Rate 115 mL/min (>60); Est Glom Filt Rate - Afr Amer 139 mL/min (>60); Globulin 3.4 g/dL (2.2-4.2); Glucose 101 mg/dL (74-106); High Density Lipoprotein 86 mg/dL; Potassium 3.9 mmol/L (3.5-5.1); Protein, Total 7.4 g/dL (6.4-8.2); Sodium Level 139 mmol/L (136-145); Triglycerides 135 mg/dL; Very Low Density Lipoprotein 27 mg/dL (5-40)
== END | disposition home or self-care (01) ==
LOC: BIMLAB 10:42
PROVIDERS: PCP Family Medicine; Visit Provider Family Medicine
DX: I10 Essential (primary) hypertension (principal); E78.5 Hyperlipidemia, unspecified
CPT/HCPCS: 36415; 80053; 80061

== ENCOUNTER → 2025-01-28 | Outpatient (CLI) | payer MEDICARE, OTHER, SELFPAY ==
--- NOTE | 2025-01-28 09:42 | BD_ITS ---
PROCEDURE: DEXA BONE DENSITY STUDY 01/28/2025 REASON FOR EXAM: OSTEOPOROSIS F, age 74 y/o . TECHNIQUE: DXA scan of sites with data reported below. Scanner utilized: [employer] W. REFERENCE LINKS: [facility] COMPARISON: DEXA on 01/26/2023 FINDINGS: BMD and T-SCORES Lumbar spine: 0.768 g/cm2, T-score -2.5 Levels: L1 through L4 Change from prior: Statistically significant BMD increase of 8.1%. Left femoral neck: 0.520 g/cm2, T-score -3.0 Femoral neck comparison data not recommended for monitoring change. Prior T-score -1.9 Left total hip: 0.714 g/cm2, T-score -1.9 Change from prior: No significant change in BMD.. Right femoral neck: 0.564 g/cm2, T-score -2.6 Femoral neck comparison data not recommended for monitoring change. Prior T-score -2.8 Right total hip: 0.737 g/cm2, T-score -1.7 Change from prior: Statistically significant BMD increase of 4.0% The World Health Organization has defined the following categories based on bone density: Normal bone density: T-score equal to or greater than -1.0 Osteopenia: T-score between -1.0 and -2.5 Osteoporosis: T-score equal to or less than -2. BD/Dexa Bone Density Study IMPRESSION: OSTEOPOROSIS. Reading Location: [facility]
--- OUTSIDE RECORDS SUMMARY | 2025-01-28 18:56 | XMS RPT_ITS | CCD ---
Author Organization [facility] Care Team Providers Care Emergency Physician Name Role Phone Radha Rowe Unavailable Cooper Lau Unavailable Melissa Han Unavailable Unavailable Messenger, Melissa Unavailable Unavailable Kaye Murray Unavailable Unavailable Unavailable Unavailable LUPILLO Reynoso Unavailable Unavailable Unavailable Unavailable Dr. Yung Myers Primary Care Provider [phone] Dr. Yung Myers Attending Provider Dr. Yung Myers Referring Provider [phone] Dr. Yung Myers Primary Care Provider [phone] Dr. Yung Myers Attending Provider [phone] Yung Myers Referring Provider Unavailable Primary Care Provider UnavailDr. Yung Kuo Primary Care Provider [phone] Dr. Yung Myers Attending Provider [phone] Yung Myers Referring Provider [phone] Unavailable Primary Care Provider UnavailYung Kuo DO Primary Care Provider WORLEY, TERRA Admitting Unavailable WORLEY, TERRA Attending Unavailable WORLEY, TERRA Attending Unavailable YUNG MYERS Primary Care Unavailable TRISH SHARP Attending Unavailable WORLEY, TERRA Attending Unavailable SELF Referring Unavailable YUNG MYERS Primary Care Unavailable WORLEY, TERRA Attending Unavailable WORLEY, TERRA Referring Unavailable YUNG MYERS Primary Care Unavailable Dr. Yung Myers DO Primary Care Provider Dr. Yung Myers DO Attending Provider [phone] Dr. Yung Myers DO Referring Provider Brown, Yung R Referring Unavailable Brown, Yung R Attending Unavailable Brown, Yung R Attending Unavailable Brown, Yung R Primary Care Unavailable Brown, Yung R Referring Unavailable Brown, Yung R Attending Unavailable Brown, Yung R Primary Care Unavailable Brown, Yung R Referring Unavailable Brown, Yung R Attending Unavailable Brown, Yung R Primary Care Unavailable Brown, Yung R Referring Unavailable Brown, Yung R Attending Unavailable Allergies Allergy Classification Reported Allergen(s) Allergy Type Date of Onset Reaction(s) Facility (6 sources) Metoclopramide; Translations: [METOCLOPRAMIDE] Drug Allergy 11-04-2024 Other: See Comments [facility] Medications Current Medications Medication Drug Class(es) Dates Sig (Normalized) Sig (Original) acetaminophen 325 mg oral tablet (5 sources) Start: 11-04-2024 take 2 tablets by mouth every six hours as needed acetaminophen (TYLENOL) 325 mg tablet Take 2 tablets by mouth every 6 hours as needed (Mild Pain (1-3)). 11/04/2024 Active benoxinate hydrochloride 4 mg/ml / fluorescein sodium 3 mg/ml ophthalmic solution (1 source) Diagnostic Dye Start: 07-05-2024 End: 07-05-2024 fluorescein-benoxi anisa 0.3-0.4 % 1 Drop (FLURESS) dexamethasone 1 mg/ml / tobramycin 3 mg/ml ophthalmic suspension (2 sources) Aminoglycoside Antibacterial, Corticosteroid Start: 11-04-2024 End: 11-18-2024 take 1 drop(s) into the eye(s) four times daily, then take 1 drop(s) into the eye(s) twice daily tobramycin-dexAMET Hasone (TOBRADEX) 0.3-0.1 % ophthalmic suspension Use 1 Drop in the left eye four times daily for 7 days, THEN 1 Drop two times a day for 7 days. 5 mL 11/04/2024 11/18/2024 Active erythromycin 0.005 mg/mg ophthalmic ointment (5 sources) Macrolide, Macrolide Antimicrobial Start: 11-04-2024 erythromycin (ROMYCIN) 5 mg/gram (0.5 %) ophthalmic ointment Use 1 application in the left eye as needed. Apply 1/2 inch ribbon per application 3.5 g 11/04/2024 Active 10 ml fluorouracil 50 mg/ml injection (1 source) Nucleoside Metabolic Inhibitor Start: 11-21-2024 End: 11-22-2024 fluorouracil 50 mg injection (ADRUCIL) losartan potassium 25 mg oral tablet (20 sources) Angiotensin 2 Receptor Radha Start: 07-23-2019 End: 01-14-2025 take 1 tablet by mouth once daily Losartan 25 mg tablet Active 25 mg PO DAILY January 14, 2025 10:17am Completed/Discontinued Medications Medication Drug Class(es) Dates Sig (Normalized) Sig (Original) albuterol 0.83 mg/ml inhalant solution (2 sources) beta2-Adrenergic Agonist ALBUTEROL SULFATE, (2.5 MG/3ML)0.083% (Inhalation Nebulization Solution) 1 q 4-6 hr prn ((2.5 MG/3ML) 0.083%) Active alendronic acid 70 mg oral tablet (5 sources) Bisphosphonate Start: 02-01-2023 End: 07-16-2024 take 1 tablet by mouth every week Alendronate (Fosamax) 70 mg tablet Discontinued 70 mg PO EVERY WEEK February 01, 2023 12:00am July 16, 2024 10:50am take 1 tablet by mouth every wee k FOSAMAX, 70MG (Oral Tablet) 1 q week (70 MG) Active amoxicillin 875 mg / clavulanate 125 mg oral tablet (1 source) Penicillin-class Antibacterial Start: 05-03-2019 take 1 tablet by mouth twice daily Augmentin 875-125 MG Oral Tablet 1 (one) Tablet bid for 0 days Quantity: 28 {Tablet} Refills: 0 Ordered: 03-May-2019 LUPILLO Reynoso Start : 03-May-2019 Active atorvastatin 20 mg oral tablet (14 sources) HMG-CoA Reductase Inhibitor Start: 01-07-2021 End: 07-27-2022 take 1 tablet by mouth once daily Atorvastatin 20 mg tablet Discontinued 20 mg PO DAILY April 19, 2022 12:49pm July 27, 2022 9:37am ciprofloxacin 500 mg oral tablet (7 sources) Quinolone Antimicrobial Start: 09-10-2018 End: 09-20-2018 Ciprofloxacin HCl 500 MG Oral Tablet 1 (one) Tablet po bid for 10 days for 10 days Quantity: 20 {Tablet} Refills: 0 Ordered: 10-Sep-2018 Jade Juarez MD Start : 10-Sep-2018 End : 20-Sep-2018 Inactive Comments: Hold Simvastatin while taking Start: 05-04-2018 End: 07-10-2018 take 1 tablet by mouth twice daily Ciprofloxacin Hcl 500 MG tablet Discontinued 500 mg PO TWICE A DAY May 04, 2018 12:00am July 10, 2018 12:07pm Comment on above: Hold Simvastatin whi le taking clarithromycin 500 mg oral tablet (4 sources) Macrolide Antimicrobial Start: 2011 End: 2017 take 1 tablet by mouth twice daily Biaxin 500 MG Oral Tablet 1 Tablet BID for 0 days Quantity: 20 {Tablet} Refills: 0 Ordered: 01-May-2018 Melissa Han Start : 24-Oct-2011 End : 01-May-2018 Inactive Fluad Quad [id number](65yr up)(PF) 60 mcg (15 mcg x 4)/0.5mL IM syringe (flu vac (1 source) Start: 2020 End: 2020 Fluad Quad (65yr up)(PF) 60 mcg (15 mcg x 4)/0.5mL IM syringe (flu vac Discontinued 60 MCG IM ONCE 0.5 July 07, 2021 10:19am July 07, 2021 11:10am 12 hr guaiFENesin 600 mg / pseudoephedrine hydrochloride 60 mg extended release oral tablet (2 sources) alpha-Adrenergic Agonist take 1 tablet by mouth every twelve hours MUCINEX D, 60-600MG (Oral Tablet Extended Release 12 Hour) 1 bid (60-600 MG) Active lisinopril 10 mg oral tablet (5 sources) Angiotensin Converting Enzyme Inhibitor Start: 2018 End: 2019 take 1 tablet by mouth once daily Lisinopril 10 mg tablet Discontinued 10 mg PO DAILY March 06, 2019 12:00am March 04, 2020 2:14pm methylPREDNISolone 4 mg oral tablet (5 sources) Corticosteroid Start: 2019 End: 2019 take 1 tablet by mouth once Methylprednisolone (Medrol (Pete)) 4 mg tablets,dose pack Discontinued 0 PO per package directions March 04, 2020 12:00am July 08, 2020 10:05am PO PER PKG DIR metroNIDAZOLE 500 mg oral tablet (7 sources) Nitroimidazole Antimicrobial Start: 2017 End: 2017 take 1 tablet by mouth every eight hours Metronidazole 500 MG tablet Discontinued 500 mg PO Q8H May 04, 2018 12:00am July 10, 2018 12:07pm Nirmatrelvir-Ritonavir (4 sources) Start: 2021 End: 2021 Nirmatrelvir-Ritonavir 300 mg (150 mg x 2)-100 mg tablet Discontinued 0 PO .COMPLEX March 06, 2022 12:00am July 12, 2022 10:36am take TWO 150 mg tablets of nirmatrelvir with ONE 100 mg tablet of ritonavir twice daily for 5 days PO Start: 03-06-2022 End: 07-12-2022 Nirmatrelvir-Ritonavir Disco ntinued 0 PO .COMPLEX March 05, 2022 11:00pm July 12, 2022 9:36am take TWO 150 mg tablets of nirmatrelvir with ONE 100 mg tablet of ritonavir twice daily for 5 days PO Start: 03-06-2022 End: 07-12-2022 Nirmatrelvir-Ritonavir Disco ntinued 0 PO .COMPLEX March 06, 2022 12:00am July 12, 2022 10:36am take TWO 150 mg tablets of nirmatrelvir with ONE 100 mg tablet of ritonavir twice daily for 5 days PO rosuvastatin calcium 5 mg oral tablet (20 sources) HMG-CoA Reductase Inhibitor Start: 07-27-2022 End: 01-14-2025 take 1 tablet by mouth once daily Rosuvastatin 5 mg tablet Discontinued 5 mg PO DAILY April 09, 2024 1:38pm January 14, 2025 10:17am simvastatin 20 mg oral tablet (20 sources) HMG-CoA Reductase Inhibitor Start: 12-27-2017 End: 03-06-2019 take 1 tablet by mouth once daily in the morning Simvastatin 20 mg tablet Discontinued 20 mg PO EVERY MORNING November 19, 2018 12:21pm March 06, 2019 8:36am Problems Active Problems Problem Classification Problem Date Documented Date Episodic/Chronic Allergic reactions (5 sources) Contact dermatitis; Translations: [Unspecified contact dermatitis, unspecified cause] 03-04-2020 Episodic Disorders of lipid metabolism (20 sources) Mixed hyperlipidemia; Translations: [Hyperlipidemia] Onset: 07-16-2024 10-24-2011 Chronic Essential hypertension (20 sources) Benign essential hypertension; Translations: [Essential hypertension] Onset: 10-16-2024 10-24-2011 Chronic Comment on above: Blood pressure is we ll controlled. Heart valve disorders (5 sources) Heart murmur; Translations: [Cardiac murmur, unspecified] 12-27-2017 Episodic Noninfectious gastroenteritis (6 sources) Colitis; Translations: [Noninfective gastroenteritis and colitis, unspecified] 05-01-2018 Episodic Osteoporosis (5 sources) Osteoporosis; Translations: [Age-related osteoporosis without current pathological fracture] Onset: 01-14-2025 01-24-2024 Chronic Other ear and sense organ disorders (1 source) Hearing loss; Translations: [Unspecified hearing loss, unspecified ear] 03-01-2023 Chronic Other eye disorders (4 sources) Epiphora of left eye due to tear drainage disorder; Translations: [Epiphora due to insufficient drainage, left side] 07-05-2024 Episodic Other eye disorders (5 sources) Acquired nasolacrimal duct obstruction; Translations: [Acquired stenosis of left nasolacrimal duct] 07-05-2024 Episodic Other eye disorders (1 source) Epiphora due to insufficient drainage, left side; Translations: [Epiphora due to insufficient drainage of left side] Onset: 11-04-2024 Episodic Other eye disorders (1 source) Acquired stenosis of left nasolacrimal duct; Translations: [Nldo, acquired (nasolacrimal duct obstruction), left] Onset: 11-04-2024 Episodic Other non-traumatic joint disorders (4 sources) Shoulder pain; Translations: [Pain in unspecified shoulder] 03-04-2022 Episodic Other non-traumatic joint disorders (4 sources) Pain in unspecified knee; Translations: [Knee pain] 07-12-2022 Episodic Other upper respiratory disease (5 sources) Seasonal allergic rhinitis; Translations: [Other seasonal allergic rhinitis] 12-27-2017 Chronic Other upper respiratory disease (1 source) Other seasonal allergic rhinitis; Translations: [Allergic rhinitis, cause unspecified] 07-26-2023 Chronic Other upper respiratory disease (1 source) Deviated nasal septum; Translations: [Deviated nasal septum] 09-24-2024 Episodic Other upper respiratory disease (1 source) Deviated nasal septum; Translations: [Deviated nasal septum] Onset: 11-04-2024 Episodic Otitis media and related conditions (1 source) Dysfunction of eustachian tube; Translations: [Unspecified Eustachian tube disorder, unspecified ear] 03-01-2023 Episodic Residual codes; unclassified (3 sources) Postoperative state; Translations: [Other specified postprocedural states] 11-15-2024 Episodic Residual codes; unclassified (1 source) Other specified postprocedural states; Translations: [Post-operative state] Onset: 11-15-2024 Episodic Varicose veins of lower extremity (5 sources) Varicose veins of lower extremity; Translations: [Asymptomatic varicose veins of bilateral lower extremities] 07-07-2021 Episodic Comment on above: This patient has had surgery on the varicosities of her left leg and is scheduled to have further surgery in the right leg. Viral infection (4 sources) Disease caused by 2019-nCoV; Translations: [COVID-19] 03-06-2022 Episodic Past or Other Problems Problem Classification Problem Date Documented Da te Episodic/Chronic Abdominal pain (2 sources) Acute abdominal pain; Translations: [Abdominal pain, acute] 05-01-2018 Episodic Conditions associated with dizziness or vertigo (2 sources) Dizziness and giddiness; Translations: [Dizziness on standing up] 05-01-2018 Episodic Conditions associated with dizziness or vertigo (2 sources) Conditions associated with dizziness or vertigo Fluid and electrolyte disorders (4 sources) Dehydration; Translations: [Dehydration] 05-01-2018 Episodic Immunizations and screening for infectious disease (5 sources) Contact with and (suspected) exposure to other viral communicable diseases; Translations: [Contact with or suspected exposure to other viral communicable disease] Onset: 07-16-2024 03-04-2022 Episodic Other bone disease and musculoskeletal deformities (2 sources) Osteopenia; Translations: [Osteopenia] 10-24-2011 Episodic Other eye disorders (1 source) Acquired stenosis of unspecified nasolacrimal duct; Translations: [Acquired stenosis of unspecified nasolacrimal duct] Onset: 10-16-2024 Episodic Other gastrointestinal disorders (4 sources) Diarrhea; Translations: [Diarrhea] 05-01-2018 Episodic Other and delivery including normal (2 sources) History of past delivery; Translations: [Vaginal Delivery] 10-24-2011 Episodic Comment on above: Other upper respiratory infections (6 sources) Acute sinusitis; Translations: [Laryngitis] 07-13-2015 Episodic Residual codes; unclassified (2 sources) History of total hysterectomy; Translations: [Hysterectomy, Total] 10-24-2011 Episodic Unclassified (2 sources) SINUSITIS, ACUTE NOS (461.9) Unclassified (2 sources) Abdominal pain, acute Unclassified (6 sources) Unclassified (4 sources) Nonsmoker; Translations: [Non-smoker] 05-01-2018 Unclassified (2 sources) Colitis, acute Unclassified (2 sources) Pregnancies (); Translations: [Pregnancies ()] 10-24-2011 Comment on above: 2. Unclassified (2 sources) Unspecified Diagnosis 05-03-2019 Results Test Name Value Interpretation Reference Range Facility Internal Medicine Office Vis kandy 01-14-2025 Internal Medicine Office Visit [facility] [place] [address] [place] [address] OFFICE VISIT Date of Service: 01/14/25 MR#: [id number] Acct: [id number] Name: DIAMOND BETTS Rep #: [id number] : 1950 Provider: Dr. 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: No Accompanied by: Is patient in pain?: Yes (upper left leg ) Pain scale (1-10): 9 Allergies No Known Allergies Allergy (Verified 01/14/25 09:55) Medications ???Medication ???Instructions ???Recorded ???Confirmed ???Type losartan 25 mg tablet 25 mg PO DAILY #90 tabs 01/14/25 0 01/14/25 Rx Have you fallen in the past year?: No Nurse's Note: upper left leg pain needs refills [facility] Medical History Colitis Knee pain Shoulder pain HTN (hypertension) Heart murmur History of rotator cuff tear Seasonal allergies Hyperlipemia Surgical History History of colonoscopy History of tonsillectomy History of appendectomy History of hysterectomy History of knee surgery Family History Father Diabetes Heart disease Mother Hypertension Parkinsons Sister Kidney disease Brother Heart disease Social History Smoking Status: Never smoker alcohol intake: never substance use type: does not use what type of physical activity do you participate in: other details: active watching young children HPI HPI Chief Complaint: fu Details: DIAMOND BETTS, is a 74 F who presents to the office today for follow-up exam. She is starting to have a lot of leg achiness which is the same problem she had when she was taking the simvastatin before she was changed to the rosuvastatin. Other than that she has no complaints. ROS Const Constitutional: No body ache, excessive sweating, fatigue, fever(s), frequent falls, headache(s), snoring, weakness, weight change, sleep problems or change in appetite Eyes Eyes: No blurry vision, change in vision, eye pain or Light sensitivity ENT ENT: No abnormal hearing, ear or mastoid pain, tinnitus, nasal congestion, headache(s), neck pain or sore throat Resp Respiratory: No cough, shortness of breath, snoring or wheezing Cardio Cardiology: No chest pain at rest, chest pain with exertion, excessive sweating, shortness of breath, dyspnea on exertion, lightheadedness, orthopnea or palpitations Gastro GI: No abdominal pain, change in bowel habits, constipation, cramping, diarrhea, nausea/dyspepsia or vomiting Genitourinary-Female: No burning urination, painful urination, urinary incontinence, urinary frequency, blood in urine, abnormal periods or pelvic pain Musc Musculoskeletal: No abnormal gait, joint pain, back pain, limited range of motion, neck pain, numbness, stiffness, tingling or Arthritis Skin Skin: No dry skin, redness, lesions, itchy eyes, rash or wounds Neuro Neurology: No abnormal gait, abnormal hearing, abnormal speech, dizziness, weakness, frequent falls, headache(s), memory loss, numbness or tingling Psych Psychiatric: No anxiety, No change in appetite, No depression, No memory loss and No Thoughts of harming yourself/Others Endo Endocrine: No cold intolerance, excessive sweating, fatigue, flushing, heat intolerance, increased thirst/drinking, increased hunger or weight change Aller/Imm Allergy/Immunologic: No itchy eyes, seasonal allergy symptoms, hives or wheezing Murphy/Lymp Hematologic/Lymphatic: No easy bleeding, easy bruising or enlarged lymph nodes Exam Const General: cooperative, healthy appearing, comfortable and no acute distress Nutritional Appearance: average body habitus and well nourished Orientation: alert, awake and oriented x3 HENMT Head: normal to inspection Nose: external nose normal Face and sinus: normal facial exam Eyes General: appearance normal, both eyes and all related structures Eyelids: eyelids normal Sclera: sclerae normal Other: This patient has had surgical correction of her left nasolacrimal gland and after a rather difficult postoperative period it is now functioning well. The exception is when she blows her nose she can feel air coming up throu (more content not included)... Normal [facility] NASAL ENDOSCOPYon 12-13-2024 [facility] -------- DIAMOND BETTS ([id number]) 1950 F Date Time Provider Department 11/21/24 [facility] During your visit today, we recorded the following information about you: Eva Bro 11/21/2024 11:36 AM Signed Ms. Betts's tube is coming out and in front of her eye. They will come to the Main campus to be seen by [facility] to try to reposition. They are coming from about an hour away so I'll put them on SDA and to then page North. Allergies As of Date: 11/21/2024 Noted Allergy Reaction REGLAN (METOCLOPRAMIDE) 11/04/2024 14 - Other: See Comments Comments: Pt states she gets shaky when taking Reglan Date Reviewed: 11/15/2024 Reviewed by: Terra Worley MD - Fully Assessed Reason for Visit: Follow-up Cuff Repair [1213] Follow Up [171] Prescriptions as of 11/21/2024 - erythromycin (ROMYCIN) 5 mg/gram (0.5 %) ophthalmic ointment Use 1 application in the left eye as needed. Apply 1/2 inch ribbon per application - acetaminophen (TYLENOL) 325 mg tablet Take 2 tablets by mouth every 6 hours as needed (Mild Pain (1-3)). - losartan (COZAAR) 25 mg tablet - rosuvastatin (CRESTOR) 5 mg tablet Problem List As Of Date 11/21/2024 Noted Resolved HTN (hypertension) [I10] 11/04/2024 HLD (hyperlipidemia) [E78.5] 11/04/2024 Encounter Status:Closed by EVA BRO on 11/21/24 Normal [facility] NASAL ENDOSCOPYon 11-21-2024 [facility] NASAL ENDOSCOPYon 11-15-2024 [facility] CNPNon 11-05-2024 [facility] Telephone (OPHTMN) -------- DIAMOND BETTS ([id number]) 1950 F Date Time Provider Department 11/05/24 [facility] During your visit today, we recorded the following information about you: [facility] Barajas PA-C 11/05/2024 11:38 AM Signed Called pt POD#1 Pt doing well Discussed limitations and use of ice and ointment/drops Plan to f/u next week as scheduled for post-op appt Pt will call back if any questions or concerns [facility] Barajas PA-C November 05, 2024 Allergies As of Date: 11/05/2024 Noted Allergy Reaction REGLAN (METOCLOPRAMIDE) 11/04/2024 14 - Other: See Comments Comments: Pt states she gets shaky when taking Reglan Date Reviewed: 11/04/2024 Reviewed by: Reta Pierre, RN - Fully Assessed Reason for Visit: Post Op Call [[id number]] Prescriptions as of 11/05/2024 - erythromycin (ROMYCIN) 5 mg/gram (0.5 %) ophthalmic ointment Use 1 application in the left eye as needed. Apply 1/2 inch ribbon per application - acetaminophen (TYLENOL) 325 mg tablet Take 2 tablets by mouth every 6 hours as needed (Mild Pain (1-3)). - tobramycin-dexAMETHasone (TOBRADEX) 0.3-0.1 % ophthalmic suspension Use 1 Drop in the left eye four times daily for 7 days, THEN 1 Drop two times a day for 7 days. - losartan (COZAAR) 25 mg tablet - rosuvastatin (CRESTOR) 5 mg tablet Problem List As Of Date 11/05/2024 Noted Resolved HTN (hypertension) [I10] 11/04/2024 HLD (hyperlipidemia) [E78.5] 11/04/2024 Encounter Status:Closed by [facility] BAR[facility] on 11/05/24 [facility] ANES POSTPROC EVALon 025 ANES POSTPROC EVAL HNO ID: [id number] Author: WILLOW SIM MD Service: ? Author Type: Anesthesiologist Type: Anesthesia Postprocedure Evaluation Filed: 11/04/2024 14:30 Note Text: POST ANESTHESIA EVALUATION NOTE : 1950 Procedure Summary Date: 11/04/24 Room / Location: [place] [address] / [facility] Anesthesia Start: 732 Anesthesia Stop: 850 Procedures: ENDOSCOPY NASAL/SINUS W/ DACROCYSTORHINOSTOMY (Left: Nose) SEPTOPLASTY (Nose) BIOPSY LACRIMAL SAC (Left: Eye lid) Diagnosis: 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, acquired (nasolacrimal duct obstruction), left Deviated nasal septum (Epiphora due to insufficient drainage of left side [H04.222]) (Nldo, acquired (nasolacrimal duct obstruction), left [H04.552]) (Deviated nasal septum [J34.2]) Surgeons: Terra Worley MD Responsible Provider: Willow Sim MD Anesthesia Type: general ASA Status: 2 Anesthesia Type: general Airway Type: ETT Last Vitals Vitals Value Taken Time BP 182/71 11/04/24 0955 Temp 36.6 ?C (97.8 ?F) 11/04/24 0904 Pulse 74 11/04/24 0955 Resp 15 11/04/24 0934 SpO2 98 % 11/04/24954 Vitals shown include unfiled device data. Post Anesthesia Patient Status Patient Evaluation: bedside. Anticipated Disposition: phase 2 then home. Neurological Status: aware and responsive. Pulmonary Status: breathing comfortably on room air Airway Control: returned to baseline unsupported. Cardiovascular Status: stable. Pain Management: satisfactory to patient - multimodal analgesia pain management approach Postoperative Hydration: acceptable. Intraoperative Events: no significant anesthesia events Post Operative Nausea/Vomiting Status: no significant post operative nausea or vomiting Recommendation: continue current plan of care. Anesthesia Observations No Documentation SIGNATURE: Willow Sim MD PATIENT NAME: Diamond Betts DATE: November 04, 2024 TIME: 2:30 PM CSN: [id number] Normal [facility] ANES PRE-OPon 11-04-2024 ANES PRE-OP HNO ID: [id number] Author: WILLOW SIM MD Service: ? Author Type: Anesthesiologist Type: Anesthesia Preprocedure Evaluation Filed: 11/04/2024 07:30 Note Text: ANESTHESIOLOGY DAY OF SURGERY NOTE : 1950 Procedure Information Date/Time: 11/04/24729 Procedures: ENDOSCOPY NASAL/SINUS W/ DACROCYSTORHINOSTOMY (Left: Nose) SEPTOPLASTY (Nose) BIOPSY LACRIMAL SAC (Left: Eye lid) Location: [place] [address] / [facility] Surgeons: Terra Worley MD Estimated body mass index is 20.85 kg/m? as calculated from the following: Height as of this encounter: 149.9 cm (4' 11). Weight as of this encounter: 46.8 kg (103 lb 4 oz). Most recent hematocrit and potassium results: No results found for this basename: HCT,HEMATOCRIT,K,POTASSI UM Relevant Problems CARDIO (+) HTN (hypertension) Cardiovascular (+) HLD (hyperlipidemia) I - PHYSICAL EVALUATION AIRWAY Patient intubated: No. Tracheostomy tube not present Mallampati: III. TM distance: >3 FB. Neck ROM: full ROM without neurological symptoms. Mouth opening: adequate. Short neck: no. Thick neck: no II - ANESTHESIA PLAN ASA Score: 2 Anesthetic Plan: general Airway type: ETT NPO Status: adequate Beta Radha Monitoring Plan Monitoring plan: standard ASA. Post Procedure Analgesic Plan Postoperative analgesic plan: multimodal analgesia. Informed Consent Anesthetic risks, benefits, alternatives, personnel and consent discussed: yes. Patient / Responsible Republican agrees to proceed: yes Patient / Surrogate agrees to blood products: blood products not planned Significant changes in the patient condition since the History and Physical, not otherwise documented in primary service progress note: no. Potential Anesthesia issues that may suggest increased risk of complications or contraindication to planned procedure: surgical field avoidance. field avoidance. The anesthetic will be complicated due to field avoidance because the surgical procedure will be around the airway (head, neck, or shoulder girdle). There will be no direct access to the patient's airway therefore increasing the technical difficulty. Vitals Value Taken Time BP 192/84 11/04/24 0700 Pulse 92 11/04/24 0702 Resp Temp SpO2 98 % 11/04/24 0701 Vitals shown include unfiled device data. Facility-Administered Medications as of 11/04/2024 Medication Dose Route Frequency acetaminophen 650 mg tab(s) (TYLENOL) 650 mg ORAL ONCE ceFAZolin 2 g in dextrose (iso-osmotic) 50 mL (ANCEF,KEFZOL) 2 g INTRAVENOUS ONCE Outpatient Medications as of 11/04/2024 Medication Sig losartan (COZAAR) 25 mg tablet rosuvastatin (CRESTOR) 5 mg tablet I have interviewed and examined the patient. I have reviewed the medical record and/or the pre-anesthesia evaluation, pertinent labs, and test results. This contains updated information obtained within 48 hours of Surgery/Procedure. SIGNATURE: Willow Sim MD PATIENT NAME: Diamond Betts DATE: November 04, 2024 TIME: 7:04 AM CSN: [id number] Normal [facility] HISTORY PHYSICALon HISTORY PHYSICAL HNO ID: [id number] Author: ADELA MOJICA MD Service: Ophthalmology Author Type: Resident Type: H&P Filed: 11/04/2024 07:13 Note Text: -------- Attestation signed by Daniel Rivera MD at 11/06/2024 12:36 PM I have confirmed and edited as necessary the relevant ophthalmic history, ROS, and the neuro exam findings as obtained by others. I have discussed the case and the management of this patient's care with the Resident. I also have reviewed and agree with the assessment and plan as stated above and agree with all of its relevant components. I, Daniel Rivera MD, personally performed or oversaw the services described in this documentation. I have reviewed the chart and discharge instructions (if applicable) and agree that the record reflects my personal performance and is accurate and complete. If clarification is needed regarding any of the above, please contact the ophthalmology resident semiconductor development technician. Daniel Rivera MD Oculofacial Plastic Surgery Fellow -------- UPDATED HISTORY AND PHYSICAL EXAMINATION SERVICE DATE: 11/04/2024 SERVICE TIME: 7:13 AM PHYSICAL EXAM MUST BE COMPLETED ON ADMISSION The History and Physical (completed in the past 30 days) has been reviewed and the patient has been examined. The contents accurately reflect the patient's condition with the following additions or revisions since the HANDP was completed. Examination indicates no changes. This HANDP can be found in the attached. SIGNATURE: Adela Mojica MD PATIENT NAME: Diamond Betts DATE: November 04, 2024 TIME: 7:13 AM Normal [facility] NURSING PROGon 11-04-2024 NURSING PROG HNO ID: [id number] Author: RETA PIERRE RN Service: ? Author Type: Registered Nurse Type: Nursing Progress Note Filed: 11/04/2024 09:54 Note Text: Dr Sim at bedside evaluating patients neurological state. Discussed with family that the patient looks appropriate post general anesthesia. Patient states vision is improving, more talkative, eyes opening. Gave patient a cup of coffee and will monitor her an additional few minutes. Then discaharge Normal [facility] NURSING PROG HNO ID: [id number] Author: RETA PIERRE RN Service: ? Author Type: Registered Nurse Type: Nursing Progress Note Filed: 11/04/2024 09:43 Note Text: 0915 Patient complaints that she can't see out of either eye. Both eyes tearing and watery. Family noting poor hand eye coordination as patient eating crackers. Dr Sim aware Normal [facility] OPERATIVE NOon 11-04-2024 OPERATIVE NO HNO ID: [id number] Author: TERRA WORLEY MD Service: Ophthalmology Author Type: Physician Type: Operative Report Filed: 11/04/2024 09:44 Note Text: OPERATIVE/PROCEDURE REPORT LOG ID: [id number] Surgery/Procedure Date: 11/04/2024 Incision/Procedure Start Time: 8:02 AM Incision Close/Procedure End Time: 8:30 AM Surgeon(s)/Proceduralist (s) and Second Steward(s): Surgeons and Role: * Terra Worley MD - Primary * Adela Mojica MD - Resident - Assisting * Nolberto Hawk MD - Resident - Assisting No Additional Staff Pre-Op/Pre-Procedure Diagnosis: left nasolacrimal duct obstruction. Epiphora, insufficient drainage. Post-Op/Post-Procedure Diagnosis: SAME left endo Dacryocystorhinostomy (DCR) with guibor stent tied with 6-0 plain gut Procedure(s): left endo Dacryocystorhinostomy (DCR) with stent placement Procedure indication(s) The patient was seen preoperatively and has had epiphora of the left side. On lacrimal irrigation testing, there was obstruction of the nasolacrimal duct. We discussed treatment options including endoscopic dacryocystorhinostomy versus external dacryocystorhinostomy. We discussed endoscopic dacryocystorhinostomy with option to convert to external if needed. Patient understood the risks, benefits, and alternatives to the procedure including, but not limited to, bleeding, infection, need for further surgery, scarring, asymmetry, persistent epiphora, nerve damage, muscle damage, double vision, and vision loss. Patient understood these and wished to proceed. Patient also understood that if we needed to perform a septoplasty or biopsy, we would perform that as well. Anesthesia: General Procedure Details: In the preoperative holding area, the left side was marked as the correct operative site. The patient was brought back to the Operating Suite where general anesthesia care was administered. In the preoperative area, Afrin and lidocaine mixture 50:50 was sprayed into the nose, and additional spray was placed in after intubation. Lidocaine 2% with epinephrine 1:100,000 was injected into the lateral nasal wall for hemostasis and anesthesia. After this was done, the nose was packed with cottonoids soaked in a 50:50 mixture of Afrin and cocaine 4% topical. The patient was then prepped and draped in the usual sterile manner. Attention was placed to the left endoscopic nasal cavity. The cottonoid packing was removed and there was a good view to the uncinate process. Probing and irrigation testing was performed with a 0 up to a 2 Mayer probe into the lacrimal system. There was a hard stop (nasolacrimal duct obstruction) in the system. A posteriorly based flap was fashioned endoscopically using a crescent blade and periosteal elevator. The bony area of the lacrimal sac fossa was then removed with 90 and 45 degree rongeurs until a nice bony ostium was made. After this was done, a Mayer probe was placed into the lacrimal sac, and from the endoscopic view, the lacrimal sac opened with a bent cystotome. Anterior and posterior flaps were made in the lacrimal sac and these laid nicely adjacent to the nasal mucosa. The common canaliculus could be seen. After this was done, a nice ostium had been made and then lacrimal stents were placed through the upper and lower system exiting out through the new ostium. The flaps laid nicely with good apposition of the nasal and lacrimal sac mucosa system. After this was done, Nasopore packing was placed (soaked in Kenalog 40) into the area of the new ostium. The stents were then tied with 6-0 plain gut and trimmed to size. The patient tolerated the procedure well, was awoken from anesthesia and discharged to the Recovery Room in stable condition. Estimated Blood Loss: <10 cc Specimens: * No specimens in log * Implantable Devices: * No implants in log * Drains: None Complications: None Participation: Dr. Worley performed local infiltration, prep and drape under indirect supervision with staff out of room and immediately available. Dr. Terra Worley was then scrubbed with assistance for the entire remainder of the case SIGNATURE: Terra Worley MD PATIENT NAME: Diamond Betts DATE: November 04, 2024 TIME: PAGER/CONTACT #: Normal [facility] Internal Medicine Office Vis iton 10-16-2024 Internal Medicine Office Visit [facility] [address] [place] [address] OFFICE VISIT Date of Service: 10/16/24 MR#: [id number] Acct: [id number] Name: DIAMOND BETTS Rep #: [id number] : 1950 Provider: Dr. Yung deng, DO Age/Sex: 74/F Location[facility] Status: Signed Intake Vital Signs 07/16/24 09:56 10/16/24 10:03 Height 4 ft 11 in 4 ft 11 in Weight: 106 lb 103 lb 4 oz BMI 21.4 20.8 BP 134/80 H 118/68 Blood Pressure Location Lt brachial Lt brachial Position Sitting Sitting Respiration 16 16 Pulse 74 70 Pulse Source Monitor Monitor Temp 97.8 F 96.1 F L Temp Source Temporal Temporal Pulse Oximetry (%) 98 99 Oxygen Delivery Method room air room air Intake Visit Reasons: SURGERY CLEARANCE Chief Complaint: clearance Engine Lathe Tender Required: No Accompanied by: Self Is patient in pain?: No Allergies No Known Allergies Allergy (Verified 10/16/24 10:03) Medications ???Medication ???Instructions ???Recorded ???Confirmed ???Type losartan 25 mg tablet 25 mg PO DAILY #90 tabs 04/09/24 0 10/16/24 Rx rosuvastatin 5 mg tablet 5 mg PO DAILY #90 tabs 04/09/24 Rx Have you fallen in the past year?: No Nurse's Note: sgy clearance for eye tear duct left [facility] Medical History Colitis Knee pain Shoulder pain HTN (hypertension) Heart murmur History of rotator cuff tear Seasonal allergies Hyperlipemia Surgical History History of colonoscopy History of tonsillectomy History of appendectomy History of hysterectomy History of knee surgery Family History Father Diabetes Heart disease Mother Hypertension Parkinsons Sister Kidney disease Brother Heart disease Social History Smoking Status: Never smoker alcohol intake: never substance use type: does not use what type of physical activity do you participate in: other details: active watching young children HPI HPI Chief Complaint: clearance Details: DIAMOND BETTS, is a 74 F who presents to the office today for a preop exam that she needs in order for her to have surgery on her left nasolacrimal duct. She has been waiting for about 6 months for this surgery to be completed. ROS Const Constitutional: No body ache, excessive sweating, fatigue, fever(s), frequent falls, headache(s), snoring, weakness, weight change, sleep problems or change in appetite Eyes Eyes: No blurry vision, change in vision, eye pain or Light sensitivity ENT ENT: No abnormal hearing, ear or mastoid pain, tinnitus, nasal congestion, headache(s), neck pain or sore throat Resp Respiratory: No cough, shortness of breath, snoring or wheezing Cardio Cardiology: No chest pain at rest, chest pain with exertion, excessive sweating, shortness of breath, dyspnea on exertion, lightheadedness, orthopnea or palpitations Gastro GI: No abdominal pain, change in bowel habits, constipation, cramping, diarrhea, nausea/dyspepsia or vomiting Genitourinary-Female: No burning urination, painful urination, urinary incontinence, urinary frequency, blood in urine, abnormal periods or pelvic pain Musc Musculoskeletal: No abnormal gait, joint pain, back pain, limited range of motion, neck pain, numbness, stiffness, tingling or Arthritis Skin Skin: No dry skin, redness, lesions, itchy eyes, rash or wounds Neuro Neurology: No abnormal gait, abnormal hearing, abnormal speech, dizziness, weakness, frequent falls, headache(s), memory loss, numbness or tingling Psych Psychiatric: No anxiety, No change in appetite, No depression, No memory loss and No Thoughts of harming yourself/Others Endo Endocrine: No cold intolerance, excessive sweating, fatigue, flushing, heat intolerance, increased thirst/drinking, increased hunger or weight change Aller/Imm Allergy/Immunologic: No itchy eyes, seasonal allergy symptoms, hives or wheezing Murphy/Lymp Hematologic/Lymphatic: No easy bleeding, easy bruising or enlarged lymph nodes Exam Const General: cooperative, healthy appearing, comfortable and no acute distress Nutritional Appearance: average body habitus and well nourished Orientation: alert, awake and oriented x3 HENMT Head: normal to inspection Nose: external nose normal and nasal mucous membranes and turbinates normal Eyes Eyelids: eyelids normal Sclera: sclerae normal Other: This patient has excessive tearing and drainage from the left eye. Neck Neck: normal visual inspection Thyroid: thyroid normal Lymphatic: no lymphadenopathy noted Resp Effort Inspection: normal respiratory effort, able to speak in complete sentences, symmetric chest movement and no cou (more content not included)... Normal [facility] NASAL ENDOSCOPYon 09-20-2024 [facility] Metabolic Prof ilon 07-16-2024 Albumin [Mass/Vol] 4.0 g/dL Normal 3.2-5.0 [facility] Comment on above: Performed By: #### L 500.4100, L500.4050 #### [facility] [address] [place], [address] Albumin/Globulin [Mass ratio] 1.2 {ratio} Normal 0.9-2.4 [facility] Comment on above: Performed By: #### L 500.4100, L500.4050 #### [facility] [address] [place], [address] ALK P 59 U/L Normal 45-117 [facility] Comment on above: Performed By: #### L 500.4100, L500.4050 #### [facility] [address] [place], [address] ALT [Catalytic activity/Vol] 26 U/L Normal 13-56 [facility] Comment on above: Performed By: #### L 500.4100, [id number] #### [facility] [address] [place], [address] AST [Catalytic activity/Vol] 19 U/L Normal 15-37 [facility] Comment on above: Performed By: #### L 500.4100, L500.4050 #### [facility] [address] [place], [address] Bilirubin [Mass/Vol] 0.70 mg/dL Normal 0.20-1.00 [facility] Comment on above: Result Comment: For patients on eltrombopag therapy, use of Dimension [place] TBIL is not recommended. Performed By: #### L 500.4100, L500.4050 #### [facility] [address] [place], [address] BUN/CRE 23.6 RATIO High 10-20 [facility] Comment on above: Performed By: #### L 500.4100, L500.4050 #### [facility] [address] [place], [address] CA,Total 9.4 mg/dL Normal 8.5-10.1 [facility] Comment on above: Performed By: #### L 500.4100, L500.4050 #### [facility] [address] [place], [address] Chloride [Moles/Vol] 105 mmol/L Normal 98-107 [facility] Comment on above: Performed By: #### L 500.4100, L500.4050 #### [facility] [address] [place], [address] CO2 [Moles/Vol] 26.0 mmol/L Normal 21.0-32.0 [facility] Comment on above: Performed By: #### L 500.4100, L500.4050 #### [facility] [address] [place], [address] Creatinine [Mass/Vol] 0.55 mg/dL Normal 0.55-1.02 [facility] Comment on above: Result Comment: The validity of the calculated GFR GFRAA in patients over 70 years has not been determined. Clinical correlation is essential. Performed By: #### L 500.4100, L500.4050 #### [facility] [address] [place], [address] EST GFR - AA 139 mL/min Normal >60 [facility] Comment on above: Result Comment: Afri can [place] GFR Calc Performed By: #### L 500.4100, L500.4050 #### [facility] [address] [place], [address] GAP 8 Normal 5-15 [facility] Comment on above: Performed By: #### L 500.4100, L500.4050 #### [facility] [address] [place], [address] GFR/1.73 sq M.predicted among non-blacks MDRD (S/P/Bld) [Vol rate/Area] 115 mL/min/{1.73_m2} Normal >60 [facility] Comment on above: Result Comment: Non- GFR Calc Performed By: #### L 500.4100, L500.4050 #### [facility] [address] [place], [address] Globulin (S) [Mass/Vol] 3.4 g/dL Normal 2.2-4.2 [facility] Comment on above: Performed By: #### L 500.4100, L500.4050 #### [facility] [address] [place], [address] Glucose [Mass/Vol] 101 mg/dL Normal 74-106 [facility] Comment on above: Result Comment: Fast ing Glucose result from 100 to 125 mg/dL suggests IMPAIRED HOMEOSTASIS per A.D.A. criteria. Performed By: #### L 500.4100, L500.4050 #### [facility] [address] [place], [address] Potassium [Moles/Vol] 3.9 mmol/L Normal 3.5-5.1 [facility] Comment on above: Performed By: #### L 500.4100, L500.4050 #### [facility] [address] [place], [address] Sodium [Moles/Vol] 139 mmol/L Normal 136-145 [facility] Comment on above: Performed By: #### L 500.4100, L500.4050 #### [facility] [address] [place], [address] T PROT 7.4 g/dL Normal 6.4-8.2 [facility] Comment on above: Performed By: #### L 500.4100, L500.4050 #### [facility] [address] [place], [address] Urea nitrogen [Mass/Vol] 13 mg/dL Normal 7-18 [facility] Comment on above: Performed By: #### L 500.4100, L500.4050 #### [facility] [address] [place], [address] Internal Medicine Office Vis kandy 07-16-2024 Internal Medicine Office Visit [facility] [address] [place] [address] OFFICE VISIT Date of Service: 07/16/24 MR#: [id number] Acct: [id number] Name: DIAMOND BETTS Rep #: [id number] : 1950 Provider: Dr. Yung deng, DO Age/Sex: 74/F Location: [facility] Status: Signed Intake Vital Signs 01/24/24 09:07 07/16/24 09:56 Height 4 ft 11 in 4 ft 11 in Weight: 106 lb 9 oz 106 lb BMI 21.5 21.4 BP 130/62 H 134/80 H Blood Pressure Location Lt brachial Lt brachial Position Sitting Sitting Respiration 16 16 Pulse 60 74 Pulse Source Monitor Monitor Temp 97.6 F L 97.8 F Temp Source Temporal Temporal Pulse Oximetry (%) 99 98 Oxygen Delivery Method room air room air Intake Visit Reasons: 6 M FU Chief Complaint: 6m FU Engine Lathe Tender Required: No Accompanied by: Is patient in pain?: No Allergies No Known Allergies Allergy (Verified 07/16/24 09:50) Medications ???Medication ???Instructions ???Recorded ???Confirmed ???Type losartan 25 mg tablet 25 mg PO DAILY #90 tabs 04/09/24 07/16/24 Rx rosuvastatin 5 mg tablet 5 mg PO DAILY #90 tabs 04/09/24 07/16/24 Rx Have you fallen in the past year?: No PFSH Medical History Colitis Knee pain Shoulder pain HTN (hypertension) Heart murmur History of rotator cuff tear Seasonal allergies Hyperlipemia Surgical History History of colonoscopy History of tonsillectomy History of appendectomy History of hysterectomy History of knee surgery Family History Father Diabetes Heart disease Mother Hypertension Parkinsons Sister Kidney disease Brother Heart disease Social History Smoking Status: Never smoker alcohol intake: never substance use type: does not use what type of physical activity do you participate in: other details: active watching young children HPI HPI Chief Complaint: 6m FU Details: DIAMOND BETTS, is a 74 F who presents to the office today for her 6-month follow-up exam. 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 She has been having a difficult time finding somebody who is able and willing to operate. Other than that she really has no complaints other than some family issues that have occupied a lot of her time. ROS Const Constitutional: No body ache, chills, excessive sweating, fatigue, fever(s), frequent falls, headache(s), snoring, weakness or change in appetite Eyes Eyes: No blurry vision, change in vision, eye pain or Light sensitivity ENT ENT: No abnormal hearing, ear or mastoid pain, tinnitus, nasal congestion, headache(s), neck pain or sore throat Resp Respiratory: No cough, shortness of breath, snoring or wheezing Cardio Cardiology: No chest pain at rest, chest pain with exertion, excessive sweating, dyspnea on exertion, lightheadedness, orthopnea or palpitations Gastro GI: No abdominal pain, change in bowel habits, constipation, cramping, diarrhea, nausea/dyspepsia or vomiting Genitourinary-Female: No burning urination, painful urination, urinary incontinence or urinary frequency Musc Musculoskeletal: No abnormal gait, joint pain, back pain, limited range of motion, muscle weakness, neck pain or numbness Skin Skin: No dry skin, redness, lesions, itchy eyes, rash or wounds Neuro Neurology: No abnormal gait, abnormal hearing, weakness, frequent falls, headache(s), memory loss or numbness Psych Psychiatric: No anxiety, No change in appetite, No depression, No memory loss and No Thoughts of harming yourself/Others Endo Endocrine: No cold intolerance, excessive sweating, fatigue, flushing, heat intolerance, increased thirst/drinking or increased hunger Aller/Imm Allergy/Immunologic: No itchy eyes, seasonal allergy symptoms, hives or wheezing Murphy/Lymp Hematologic/Lymphatic: No easy bleeding or easy bruising Exam Const General: cooperative, healthy appearing, comfortable and no acute distress Nutritional Appearance: average body habitus and well nourished Orientation: alert, awake and oriented x3 HENMT Head: normal to inspection Nose: external nose normal and nasal mucous membranes and turbinates normal Eyes Eyelids: eyelids normal Conjunctivae: conjunctivae normal Sclera: sclerae normal Cornea: corneas normal Neck Lymphatic: no lymphadenopathy noted Resp Effort Inspection: normal respiratory effort, able to speak in complete sentences, symmetric chest movement and no cough Auscultation: Bilateral: Clear to Auscultation Cardio Rate: regular rate Rhythm: regular rhythm Heart Sounds: S1 normal and S2 normal Skin General: no r (more content not included)... Normal [facility] Lipid Profileon 07-16-2024 Cholesterol [Mass/Vol] 190 mg/dL Normal 200 [facility] Comment on above: Result Comment: <200 mg/dL Desirable 200-240 mg/dL Borderline >240 mg/dL High Risk Performed By: #### L 500.4100, L500.4050 #### [facility] [address] [place], [address] Cholesterol in HDL [Mass/Vol] 86 mg/dL Normal [facility] Comment on above: Result Comment: The drugs N-Acetylcysteine and Metamizole may falsely depress this assay. Reference Range HDL <40 mg/dL Low HDL Cholesterol HDL >or= 60 mg/dL High HDL Cholesterol Performed By: #### L 500.4100, L500.4050 #### [facility] [address] [place], [address] Cholesterol in LDL [Mass/Vol] 77 mg/dL Normal 0-130 [facility] Comment on above: Performed By: #### L 500.4100, L500.4050 #### [facility] [address] [place], [address] Cholesterol in VLDL [Mass/Vol] 27 mg/dL Normal 5-40 [facility] Comment on above: Performed By: #### L 500.4100, L500.4050 #### [facility] [address] [place], [address] Triglyceride [Mass/Vol] 135 mg/dL Normal [facility] Comment on above: Result Comment: The drugs N-Acetylcysteine and Metamizole may falsely depress this assay. Serum Triglycerides Reference Interval Normal <150 mg/dL Borderline high 150 - 199 mg/dL High 200 - 499 mg/dL Very High > or = 500 mg/dL Performed By: #### L 500.4100, [id number] #### [facility] [address] [place], [address] PROBING OF LACRIMAL CANALICU LI WITH OR WITHOUT IRRIGATIONon 07-05-2024 [facility] Basophil percentageOrdered B y: Yung Myers on 07-26-2023 Bilirubin [Mass/Vol] 0.40 mg/dL 0.20-1.00 [facility] Comment on above: For patients on eltr ombopag therapy, use of Dimension [place] TBIL is not recommended. Chloride [Moles/Vol] 106 mmol/L 98-107 [facility] Cholesterol [Mass/Vol] 190 mg/dL <200 [facility] Comment on above: <200 mg/dL Desirable 200-240 mg/dL Borderline >240 mg/dL High Risk Glucose [Mass/Vol] 110 mg/dL 74-106 [facility] Comment on above: Fasting Glucose resu lt from 100 to 125 mg/dL suggests IMPAIRED HOMEOSTASIS per A.D.A. criteria. Potassium [Moles/Vol] 4.4 mmol/L 3.5-5.1 [facility] Protein [Mass/Vol] 7.5 g/dL 6.4-8.2 [facility] Sodium [Moles/Vol] 139 mmol/L 136-145 [facility] Triglyceride [Mass/Vol] 111 mg/dL <199 [facility] Comment on above: The drugs N-Acetylcy steine and Metamizole may falsely depress this assay.Serum Triglycerides Reference Interval Normal <150 mg/dL Borderline high 150 - 199 mg/dL High 200 - 499 mg/dL Very High > or = 500 mg/dL Laboratory - Chemistry and C hemistry - challengeOrdered By: Yung Myers on 07-26-2023 ALP [Catalytic activity/Vol] 60 U/L 45-117 [facility] ALT [Catalytic activity/Vol] 30 U/L 13-56 [facility] CO2 [Moles/Vol] 30.0 mmol/L 21.0-32.0 [facility] Globulin (S) [Mass/Vol] 3.6 g/dL 2.2-4.2 [facility] Urea nitrogen/Creatinine [Mass ratio] 23.0 mg/mg 10-20 [facility] No Panel InformationOrdered By: Yung Myers on 07-26-2023 Estimated GFR (MDRD) Amer 124 mL/min >60 [facility] Comment on above: GFR Calc Estimated GFR (MDRD) Non-Af Amer 102 mL/min >60 [facility] Comment on above: Non- GFR Calc Serum or plasma albumin mitchell urement (mass/volume)Ordered By: Yung Myers on 07-26-2023 Albumin [Mass/Vol] 3.9 g/dL 3.2-5.0 [facility] Serum or plasma albumin/glob ulin mass ratioOrdered By: Yungyuliya Myers on 07-26-2023 Albumin/Globulin [Mass ratio] 1.1 {ratio} 0.9-2.4 [facility] Serum or plasma calcium mitchell urement (mass/volume)Ordered By: Yung Myers on 07-26-2023 Calcium [Mass/Vol] 9.4 mg/dL 8.5-10.1 [facility] Serum or plasma cholesterol in HDL measurement (mass/volume)Ordered By: Yung Myers on 07-26-2023 Cholesterol in HDL [Mass/Vol] 83 mg/dL >40 [facility] Comment on above: The drugs N-Acetylcy steine and Metamizole may falsely depress this assay. Reference Range HDL <40 mg/dL Low HDL Cholesterol HDL >or= 60 mg/dL High HDL Cholesterol Serum or plasma cholesterol in VLDL measurement (mass/volume)Ordered By: Yung Myers on 07-26-2023 Cholesterol in VLDL [Mass/Vol] 22 mg/dL 5-40 [facility] Serum or plasma creatinine m easurement (mass/volume)Ordered By: Yung Myers on 07-26-2023 Creatinine [Mass/Vol] 0.61 mg/dL 0.55-1.02 [facility] Comment on above: The validity of the calculated GFR & GFRAA in patients over 70 years has not been determined. Clinical correlation is essential. Serum or plasma low density lipoprotein (LDL) cholesterol measurement (mass/volume)Ordered By: Yung Myers on 07-26-2023 Cholesterol in LDL [Mass/Vol] 85 mg/dL 0-130 [facility] Serum or plasma urea nitroge n measurement (mass/volume)Ordered By: Yung Myers on 07-26-2023 Urea nitrogen [Mass/Vol] 14 mg/dL 7-18 [facility] Thin prep Papanicolaou smear with manual screeningOrdered By: Yung Myers on 07-26-2023 Thin prep Papanicolaou smear with manual screening 20 U/L 15-37 [facility] Thin prep Papanicolaou smear with manual screening 3 5-15 [facility] Basophil percentageOrdered B y: Dr. Myers on 01-19-2023 Bilirubin [Mass/Vol] 0.60 mg/dL 0.20-1.00 [facility] Comment on above: For patients on eltr ombopag therapy, use of [place] TBIL is not recommended. Chloride [Moles/Vol] 104 mmol/L 98-107 [facility] Cholesterol [Mass/Vol] 187 mg/dL <200 [facility] Comment on above: <200 mg/dL Desirable 200-240 mg/dL Borderline >240 mg/dL High Risk Glucose [Mass/Vol] 104 mg/dL 74-106 [facility] Comment on above: Fasting Glucose resu lt from 100 to 125 mg/dL suggests IMPAIRED HOMEOSTASIS per A.D.A. criteria. Potassium [Moles/Vol] 3.9 mmol/L 3.5-5.1 [facility] Protein [Mass/Vol] 7.2 g/dL 6.4-8.2 [facility] Sodium [Moles/Vol] 140 mmol/L 136-145 [facility] Triglyceride [Mass/Vol] 125 mg/dL <199 [facility] Comment on above: The drugs N-Acetylcy steine and Metamizole may falsely depress this assay.Serum Triglycerides Reference Interval Normal <150 mg/dL Borderline high 150 - 199 mg/dL High 200 - 499 mg/dL Very High > or = 500 mg/dL Laboratory - Chemistry and C hemistry - challengeOrdered By: Dr. Myers on 01-19-2023 ALP [Catalytic activity/Vol] 62 U/L 45-117 [facility] ALT [Catalytic activity/Vol] 24 U/L 13-56 [facility] CO2 [Moles/Vol] 30.0 mmol/L 21.0-32.0 [facility] Globulin (S) [Mass/Vol] 3.1 g/dL 2.2-4.2 [facility] Urea nitrogen/Creatinine [Mass ratio] 15.9 mg/mg 10-20 [facility] No Panel InformationOrdered By: Dr. Myers on 01-19-2023 Estimated GFR (MDRD) Amer 120 mL/min >60 [facility] Comment on above: GFR Calc Estimated GFR (MDRD) Non-Af Amer 99 mL/min >60 [facility] Comment on above: Non- GFR Calc Serum or plasma albumin mitchell urement (mass/volume)Ordered By: Dr. Myers on 01-19-2023 Albumin [Mass/Vol] 4.1 g/dL 3.2-5.0 [facility] Serum or plasma albumin/glob ulin mass ratioOrdered By: Dr. Myers on 01-19-2023 Albumin/Globulin [Mass ratio] 1.3 {ratio} 0.9-2.4 [facility] Serum or plasma calcium mitchell urement (mass/volume)Ordered By: Dr. Myers on 01-19-2023 Calcium [Mass/Vol] 9.7 mg/dL 8.5-10.1 [facility] Serum or plasma cholesterol in HDL measurement (mass/volume)Ordered By: Dr. Myers on 01-19-2023 Cholesterol in HDL [Mass/Vol] 79 mg/dL >40 [facility] Comment on above: The drugs N-Acetylcy steine and Metamizole may falsely depress this assay. Reference Range HDL <40 mg/dL Low HDL Cholesterol HDL >or= 60 mg/dL High HDL Cholesterol Serum or plasma cholesterol in VLDL measurement (mass/volume)Ordered By: Dr. Myers on 01-19-2023 Cholesterol in VLDL [Mass/Vol] 25 mg/dL 5-40 [facility] Serum or plasma creatinine m easurement (mass/volume)Ordered By: Dr. Myers on 01-19-2023 Creatinine [Mass/Vol] 0.63 mg/dL 0.55-1.02 [facility] Comment on above: The validity of the calculated GFR & GFRAA in patients over 70 years has not been determined. Clinical correlation is essential. Serum or plasma low density lipoprotein (LDL) cholesterol measurement (mass/volume)Ordered By: Dr. Myers on 05-25-2023 Cholesterol in LDL [Mass/Vol] 83 mg/dL 0-130 [facility] Serum or plasma urea nitroge n measurement (mass/volume)Ordered By: Dr. Myers on 01-19-2023 Urea nitrogen [Mass/Vol] 10 mg/dL 7-18 [facility] Thin prep Papanicolaou smear with manual screeningOrdered By: Dr. Myers on 01-19-2023 Thin prep Papanicolaou smear with manual screening 15 U/L 15-37 [facility] Thin prep Papanicolaou smear with manual screening 6 5-15 [facility] Basophil percentageon 2021 Bilirubin [Mass/Vol] 0.70 mg/dL 0.20-1.00 [facility] Work Phone: Comment on above: For patients on eltr ombopag therapy, use of [place]ension [place] TBIL is not recommended. Chloride [Moles/Vol] 103 mmol/L 98-107 [facility] Work Phone: Cholesterol [Mass/Vol] 195 mg/dL <200 [facility] Work Phone: Comment on above: <200 mg/dL Desirable 200-240 mg/dL Borderline >240 mg/dL High Risk Glucose [Mass/Vol] 110 mg/dL 74-106 [facility] Work Phone: Comment on above: Fasting Glucose resu lt from 100 to 125 mg/dL suggests IMPAIRED HOMEOSTASIS per A.D.A. criteria. Potassium [Moles/Vol] 4.3 mmol/L 3.5-5.1 [facility] Work Phone: [phone] Protein [Mass/Vol] 7.6 g/dL 6.4-8.2 [facility] Work Phone: Sodium [Moles/Vol] 138 mmol/L 136-145 [facility] Work Phone: [phone] Triglyceride [Mass/Vol] 132 mg/dL [facility] Work Phone: Comment on above: The drugs N-Acetylcy steine and Metamizole may falsely depress this assay.Serum Triglycerides Reference Interval Normal <150 mg/dL Borderline high 150 - 199 mg/dL High 200 - 499 mg/dL Very High > or = 500 mg/dL Laboratory - Chemistry and C hemistry - challengeon 01-05-2022 ALP [Catalytic activity/Vol] 63 U/L 45-117 [facility] Work Phone: [phone] ALT [Catalytic activity/Vol] 36 U/L 13-56 [facility] Work Phone: [phone] CO2 [Moles/Vol] 30.0 mmol/L 21.0-32.0 [facility] Work Phone: [phone] Globulin (S) [Mass/Vol] 3.4 g/dL 2.2-4.2 [facility] Work Phone: [phone] Urea nitrogen/Creatinine [Mass ratio] 27.2 mg/mg 10-20 [facility] Work Phone: [phone] No Panel Informationon 01-05 Estimated GFR (MDRD) Amer 152 mL/min >60 [facility] Work Phone: Comment on above: GFR Calc Estimated GFR (MDRD) Non-Af Amer 125 mL/min >60 [facility] Work Phone: Comment on above: Non- GFR Calc Serum or plasma albumin mitchell urement (mass/volume)on 01-05-2022 Albumin [Mass/Vol] 4.2 g/dL 3.2-5.0 [facility] Work Phone: [phone] Serum or plasma albumin/glob ulin mass ratioon 01-05-2022 Albumin/Globulin [Mass ratio] 1.2 {ratio} 0.9-2.4 [facility] Work Phone: [phone] Serum or plasma calcium mitchell urement (mass/volume)on 01-05-2022 Calcium [Mass/Vol] 9.6 mg/dL 8.5-10.1 [facility] Work Phone: [phone] Serum or plasma cholesterol in HDL measurement (mass/volume)on 01-05-2022 Cholesterol in HDL [Mass/Vol] 80 mg/dL [facility] Work Phone: [phone] Comment on above: The drugs N-Acetylcy steine and Metamizole may falsely depress this assay. Reference Range HDL <40 mg/dL Low HDL Cholesterol HDL >or= 60 mg/dL High HDL Cholesterol Serum or plasma cholesterol in VLDL measurement (mass/volume)on 01-05-2022 Cholesterol in VLDL [Mass/Vol] 26 mg/dL 5-40 [facility] Work Phone: Serum or plasma creatinine m easurement (mass/volume)on 01-05-2022 Creatinine [Mass/Vol] 0.51 mg/dL 0.55-1.02 [facility] Work Phone: Comment on above: The validity of the calculated GFR & GFRAA in patients over 70 years has not been determined. Clinical correlation is essential. Serum or plasma low density lipoprotein (LDL) cholesterol measurement (mass/volume)on 01-05-2022 Cholesterol in LDL [Mass/Vol] 89 mg/dL 0-130 [facility] Work Phone: Serum or plasma urea nitroge n measurement (mass/volume)on 01-05-2022 Urea nitrogen [Mass/Vol] 14 mg/dL 7-18 [facility] Work Phone: Thin prep Papanicolaou smear with manual screeningon 01-05-2022 Thin prep Papanicolaou smear with manual screening 23 U/L 15-37 [facility] Work Phone: Thin prep Papanicolaou smear with manual screening 5 5-15 [facility] Work Phone: Vital Signs Date Time Vital Sign Value Performing Clinician Facility 01-14-2025 10:03-0400 Body height 149.[address] Yung Myers DO Work Phone: [facility] 01-14-2025 10:03-0400 Body mass index (BMI) [Ratio] 21.2 kg/m2 Dr. Yung Myers DO Work Phone: [facility] 01-14-2025 10:03-0400 Body temperature 96.1 [degF] Dr. Yung Myers DO Work Phone: [facility] 01-14-2025 10:03-0400 Body weight 47.[address] Yung Myers DO Work Phone: [facility] 01-14-2025 10:03-0400 Diastolic blood pressure 78 mm[Hg] Dr. Yung Myers DO Work Phone: [facility] 01-14-2025 10:03-0400 Heart rate 58 /min Dr. Yung Myers DO Work Phone: [facility] 01-14-2025 10:03-0400 Respiratory rate 16 /min Dr. Yung Myers DO Work Phone: [facility] 01-14-2025 10:03-0400 SaO2% (BldA) [Mass fraction] 98 % Dr. Yung Myers DO Work Phone: [facility] 01-14-2025 10:03-0400 Systolic blood pressure 118 mm[Hg] Dr. Yung Myers DO Work Phone: [facility] 10-16-2024 10:03-0500 Body mass index (BMI) [Ratio] 20.8 kg/m2 Dr. Yung Myers DO Work Phone: [facility] 10-16-2024 10:03-0500 Body temperature 96.1 [degF] Dr. Yung Myers DO Work Phone: [facility] 10-16-2024 10:03-0500 Body weight 46.[address] Yung Myers DO Work Phone: [facility] 10-16-2024 10:03-0500 Diastolic blood pressure 68 mm[Hg] Dr. Yung Myers DO Work Phone: [facility] 10-16-2024 10:03-0500 Heart rate 70 /min Dr. Yung Myers DO Work Phone: [facility] 10-16-2024 10:03-0500 Respiratory rate 16 /min Dr. Yung Myers DO Work Phone: [facility] 10-16-2024 10:03-0500 SaO2% (BldA) [Mass fraction] 99 % Dr. Yung Myers DO Work Phone: [facility] 10-16-2024 10:03-0500 Systolic blood pressure 118 mm[Hg] Dr. Yung Myers DO Work Phone: [facility] 07-26-2023 09:06-0500 Body height 149.[address] Yung Myers Work Phone: [facility] 07-26-2023 09:06-0500 Body mass index (BMI) [Ratio] 22.2 kg/m2 Dr. Yung Myers Work Phone: [facility] 07-26-2023 09:06-0500 Body temperature 97.8 [degF] Dr. Yung Myers Work Phone: [facility] 07-26-2023 09:06-0500 Body weight 49.[address] Yung Myers Work Phone: [facility] 07-26-2023 09:06-0500 Diastolic blood pressure 72 mm[Hg] Dr. Yung Myers Work Phone: [facility] 07-26-2023 09:06-0500 Heart rate 66 /min Dr. Yung Myers Work Phone: [facility] 07-26-2023 09:06-0500 Respiratory rate 16 /min Dr. Yung Myers Work Phone: [facility] 07-26-2023 09:06-0500 SaO2% (BldA) [Mass fraction] 99 % Dr. Yung Myers Work Phone: [facility] 07-26-2023 09:06-0500 Systolic blood pressure 128 mm[Hg] Dr. Yung Myers Work Phone: [facility] 01-26-2023 13:43-0400 Body height 149.[address] Yung Myers Work Phone: [facility] 01-19-2023 12:55-0400 Body mass index (BMI) [Ratio] 20.8 kg/m2 Dr. Yung Myers Work Phone: [facility] 01-19-2023 12:55-0400 Body temperature 98 [degF] Dr. Yung Myers Work Phone: [facility] 01-19-2023 12:55-0400 Body weight 46.[address] Yung Myers Work Phone: [facility] 01-19-2023 12:55-0400 Diastolic blood pressure 70 mm[Hg] Dr. Yung Myers Work Phone: [facility] 01-19-2023 12:55-0400 Heart rate 102 /min Dr. Yung Myers Work Phone: [facility] 01-19-2023 12:55-0400 Respiratory rate 16 /min Dr. Yung Myers Work Phone: [facility] 01-19-2023 12:55-0400 SaO2% (BldA) [Mass fraction] 99 % Dr. Yung Myers Work Phone: [facility] 01-19-2023 12:55-0400 Systolic blood pressure 128 mm[Hg] Dr. Yung Myers Work Phone: [facility] 01-05-2022 09:32-0400 Body height 149.[address] Yung Myers Work Phone: [facility] Work Phone: 01-05-2022 09:32-0400 Body mass index (BMI) [Ratio] 20.7 kg/m2 Dr. Yung Myers Work Phone: [facility] Work Phone: 01-05-2022 09:32-0400 Body temperature 98.1 [degF] Dr. Yung Myers Work Phone: [facility] Work Phone: 01-05-2022 09:32-0400 Body weight 46.[address] Yung Myers Work Phone: [facility] Work Phone: 01-05-2022 09:32-0400 Diastolic blood pressure 78 mm[Hg] Dr. Yung Myers Work Phone: [facility] Work Phone: 01-05-2022 09:32-0400 Heart rate 64 /min Dr. Yung Myers Work Phone: [facility] Work Phone: 01-05-2022 09:32-0400 Respiratory rate 14 /min Dr. Yung Myers Work Phone: [facility] Work Phone: 01-05-2022 09:32-0400 SaO2% (BldA) [Mass fraction] 97 % Dr. Yung Myers Work Phone: [facility] Work Phone: 01-05-2022 09:32-0400 Systolic blood pressure 140 mm[Hg] Dr. Yung Myers Work Phone: [facility] Work Phone: 05-01-2018 09:58-0400 BMI (Body Mass Index) 21.43 kg/m2 Radha Rowe [facility] Work Phone: Comment on above: 140/74, 74 xkzac346/70, 73 qgjebkc221/76 , 87 standing 05-01-2018 09:58-0400 Body Temperature 97.5 [degF] Radha Rowe [facility] Work Phone: Comment on above: 140/74, 74 eiody217/70, 73 muglotl027/76 , 87 standing 05-01-2018 09:58-0400 Body weight 49.77 kg Radha Rowe [facility] Work Phone: Comment on above: 140/74, 74 jybwe828/70, 73 fmgklje379/76 , 87 standing 05-01-2018 09:58-0400 BP Diastolic 75 mm[Hg] Radha Rowe [facility] Work Phone: Comment on above: Patient Position: Sitting; Cuff Location : Left Arm; Cuff Size: Standard 140/74, 74 kopuc946/ 70, 73 uscoici588/76, 87 standing 05-01-2018 09:58-0400 BP Systolic 149 mm[Hg] Radha Rowe [facility] Work Phone: Comment on above: Patient Position: Sitting; Cuff Location : Left Arm; Cuff Size: Standard 140/74, 74 olray820/ 70, 73 luiypip084/76, 87 standing 05-01-2018 09:58-0400 BSA (Body Surface Area) 1.45 m2 Radha Rowe [facility] Work Phone: Comment on above: 140/74, 74 /70, 73 wjfzmfy796/76 , 87 standing 05-01-2018 09:58-0400 Height 152.4 cm Radha Rowe [facility] Work Phone: Comment on above: 140/74, 74 dbezf452/70, 73 hkwxcio449/76 , 87 standing 05-01-2018 09:58-0400 Pulse (Heart Rate) 79 /min Radha Rowe [facility] Work Phone: Comment on above: Pattern: Regular 140/74, 74 dskoq205/ 70, 73 /76, 87 standing 05-01-2018 09:58-0400 Pulse Oximetry 98 % Radha Rowe [facility] Work Phone: Comment on above: Room air 140/74, 74 / 70, 73 kbydxci170/76, 87 standing 05-01-2018 09:58-0400 Respiratory Rate 16 /min Radha Rowe [facility] Work Phone: Comment on above: Pattern: Unlabored 140/74, 74 voeuj132/ 70, 73 drwakty396/76, 87 standing 05-01-2018 09:58-0400 Weight 49.77 kg Radha Rowe [facility] Work Phone: Comment on above: 140/74, 74 jbwiv317/70, 73 /76 , 87 standing 10-24-2011 10:25-0500 BMI (Body Mass Index) 20.73 kg/m2 Radha Rowe [facility] Work Phone: 10-24-2011 10:25-0500 Body Temperature 97.8 [degF] Radha Rowe [facility] Work Phone: Comment on above: Method: Oral 10-24-2011 10:25-0500 Body weight 48.14 kg Radha Quinones [facility] Work Phone: 10-24-2011 10:25-0500 BP Diastolic 98 mm[Hg] Radha Rowe [facility] Work Phone: Comment on above: Patient Position: Sitting; Cuff Location : Left Arm; Cuff Size: Large 10-24-2011 10:25-0500 BP Systolic 142 mm[Hg] Radha Rowe [facility] Work Phone: Comment on above: Patient Position: Sitting; Cuff Location : Left Arm; Cuff Size: Large 10-24-2011 10:25-0500 BSA (Body Surface Area) 1.43 m2 Radha Row[facility] Work Phone: 10-24-2011 10:25-0500 Height 152.4 cm Radha Rowe [facility] Work Phone: 10-24-2011 10:25-0500 Pulse (Heart Rate) 80 /min Radha Row[facility] Work Phone: Comment on above: Pattern: Regular 10-24-2011 10:25-0500 Pulse Oximetry 97 % Radha Quinones [facility] Work Phone: Comment on above: Room air 10-24-2011 10:25-0500 Respiratory Rate 16 /min Radha Quinones [facility] Work Phone: Comment on above: Pattern: Unlabored 10-24-2011 10:25-0500 Weight 48.14 kg Radha Quinones [facility] Work Phone: Encounters Encounter Date Encounter Type Care Provider Facility Start: 01-28-2025 ambulatory Yung Lange y:[facility] Start: 01-14-2025 End: 01-14-[address] Yung Mathias DO -[facility] Work Phone: Start: 01-14-2025 End: 01-14-[address] 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 Start: 12-13-2024 End: 12-13-2024 ambulatory [facility] Facility:[facility] Start: 11-21-2024 End: 11-21-2024 Telephone encounter [place] PA-C Work Phone: Ophthalmology Comment on above: Follow-up Cuff Repai r; Follow Up Start: 11-21-2024 End: 11-21-2024 ambulatory [facility] Facility:[facility] Start: 11-21-2024 End: 11-21-2024 Patient encounter procedure Terra Worley MD Work Phone: Ophthalmology Comment on above: Post-operative state (Primary Dx) Start: 11-15-2024 End: 11-15-2024 [facility] Facility:[facility] Start: 11-15-2024 End: 11-15-2024 Patient encounter procedure Terra Worley MD Work Phone: Ophthalmology Comment on above: Post-operative state (Primary Dx) Start: 11-05-2024 End: 11-05-2024 Telephone encounter [place] PA-C Work Phone: Ophthalmology Comment on above: Post Op Call Start: 11-04-2024 End: 11-04-2024 ambulatory [facility] Facility:[facility] Start: 10-16-2024 End: 10-16-[address] Yung Mathias DO -[facility] Work Phone: Start: 10-16-2024 End: 10-16-2024 ambulatory Yung Myers Facility:[facility] Start: 09-24-2024 End: 09-24-2024 Orders Only Tom Aldridge APRN.[employer] Work Phone: Ophthalmology Comment on above: Epiphora due to insu fficient drainage of left side (Primary Dx); Nldo, acquired (nasolacrimal duct obstruction), left; Deviated nasal septum Start: 09-20-2024 End: 09-20-2024 ambulatory TERRA WORLEY Facility:[facility] Start: 09-20-2024 End: 09-20-2024 Patient encounter procedure Terra Worley MD Work Phone: Ophthalmology Comment on above: Epiphora due to insu fficient drainage of left side (Primary Dx); Nldo, acquired (nasolacrimal duct obstruction), left Start: 07-16-2024 End: 07-16-2024 ambulatory Yung Myers Facility[facility] Start: 07-16-2024 End: 07-16-2024 ambulatory Yung Myers Facility:[facility] Start: 07-05-2024 End: 07-05-2024 ambulatory TRISH SHARP Facility:[facility] Start: 07-05-2024 End: 07-05-2024 Patient encounter procedure Trish Sharp MD Work Phone: Ophthalmology Comment on above: Epiphora due to insu fficient drainage of left side (Primary Dx); Nldo, acquired (nasolacrimal duct obstruction), left Start: 07-26-2023 End: 07-26-[address] Yung Myers Work Phone: [facility] Work Phone: Start: 07-26-2023 End: 07-26-[address] Yung Myers Work Phone: [facility] Work Phone: Start: 03-07-2023 End: 03-07-2023 Office outpatient new 45 minutes Leonel Gaviria MD Work Phone: [facility] Comment on above: Hearing loss, unspec ified hearing loss type, unspecified laterality (Primary Dx); Eustachian tube dysfunction, unspecified laterality Start: 01-26-2023 End: 01-26-[address] Yung Myers Work Phone: [facility] Work Phone: Start: 01-26-2023 End: 01-26-[address] Yung Myers Work Phone: [facility]-Outpatient Bone Densitometry Start: 01-19-2023 End: 01-19-[address] Yung Myers Work Phone: [facility] Work Phone: Start: 01-19-2023 End: 01-19-[address] Yung Myers Work Phone: [facility] Start: 01-05-2022 End: 01-05-[address] Yung Myers Work Phone: [facility]-Laboratory, [facility] Start: 01-05-2022 End: 01-05-[address] Yung Myers Work Phone: [facility] Start: 05-03-2019 End: 05-03-2019 Phone Encounter Radha [facility] Start: 05-01-2018 End: 05-01-2018 Annotation/Addendum Radha Rowe [facility] Start: 05-01-2018 End: 05-01-2018 Office outpatient visit 15 minutes [facility] Start: 10-24-2011 End: 10-24-2011 Patient encounter procedure Radha [facility]ones [facility] Procedures Date Procedure Procedure Detail Performing Clinician Start: 12-13-2024 Nasal endoscopy diag nostic uni/bi spx Terra Worley MD Work Phone: Start: 11-21-2024 Nasal endoscopy diag nostic uni/bi spx Terra Worley MD Work Phone: Start: 11-15-2024 Nasal endoscopy diag nostic uni/bi spx Terra Worley MD Work Phone: Start: 09-20-2024 Nasal endoscopy diag nostic uni/bi spx Tom Aldridge APRN.CNP Work Phone: Start: 07-05-2024 Probe lacrimal canal iculi w/wo irrigation [place] PA-C Work Phone: Start: 01-26-2023 Dual energy X-ray absorptiometry Dr. Yung Myers Work Phone: Arthroscopy of knee Arthroscopy of Knee K athleen Soledad Plan of Treatment Date Care Activity Detail Author Start: 07-08-2030 Urine microalbumin profile [facility] Start: 2026 RSV Vaccine (1 - 1-dose 75+ series) RSV Vaccine (1 - 1-dose 75+ series) [facility] Start: 01-01-2025 End: 01-01-2025 Patient encounter procedure 01/01/2025 11:00 AM EDT Office Visit [facility] Ophthalmology [address] [facility] [address] [place] [address] Terar Worley MD [address] [place] [address] 6-8 Weeks Post Op Ophthalmology Comment on above: 6-8 Weeks Post Op Start: 12-02-2024 End: 12-02-2024 Patient encounter procedure 12/02/2024 1:15 PM EDT Office Visit [facility] Ophthalmology [address] [address] Terra Worley MD [address] [place] [address] 3 Week F/U ~ possible 5FU Ophthalmology Comment on above: 3 Week F/U ~ possible 5FU Start: 11-14-2024 End: 11-14-2024 Patient encounter procedure 11/14/2024 10:00 AM EDT Office Visit [facility] Ophthalmology [address] [place] [address] Tom Aldridge APRN.BLEACH SUPERVISOR [address] [place] [address] 7-8 Days Post Op Ophthalmology Comment on above: 7-8 Days Post Op Start: 09-20-2024 End: 09-20-2024 Patient encounter procedure 09/20/2024 10:30 AM EST Office Visit [facility] Ophthalmology [address] [place] [address] Terra Worley MD [address] [place] [address] left endoDCR eval Ophthalmology Comment on above: left endoDCR eval Start: 08-28-2024 Advance Directive Discussion Advance Directive Discussion [facility] Start: 04-28-2024 Covid-19 Vaccine ( season) Covid-19 Vaccine ( season) [facility] Start: 04-28-2024 Influenza vaccination Influenza Vaccine (#1) [facility] Start: 08-28-2023 Advance Directive Discussion Advance Directive Discussion [facility] Start: 04-28-2023 Influenza vaccination INFLUENZA (#1) [facility] Start: 08-28-2022 ADVANCE DIRECTIVE DISCUSSION ADVANCE DIRECTIVE DISCUSSION [facility] Start: 08-28-2022 DEPRESSION ASSESSMENT DEPRESSION ASSESSMENT [facility] Start: 12-30-2020 Covid-19 Vaccine (3 - Moderna risk series) Covid-19 Vaccine (3 - Moderna risk series) [facility] Start: 05-01-2018 Procedure Education Eprescribed prescriptions (L5621) [facility] Work Phone: Start: 05-01-2018 Provider Instructions for Treatment Follow up if no improvement or if symptoms worsen [facility] Work Phone: Start: 05-01-2018 Comprehensive metabolic panel METABOLIC PANEL, COMPREHENSIVE (29644) [facility] Work Phone: Comment on above: STAT Start: 05-01-2018 Blood count complete auto&auto difrntl wbc CBC, PLATELETS & AUT DIFF (79008) [facility] Work Phone: Start: 05-01-2018 Ova&parasites direct smears concentration & id OVA & PARASITE DIR SMEAR ([id number]) [facility] Work Phone: Start: 05-01-2018 Blood occult peroxidase actv qual feces 1 deter OCCULT BLOOD FECES SCREEN (08149) [facility] Work Phone: Start: 05-01-2018 Leukocyte assmt fecal qual/semiquantitative LEUKOCYTE COUNT, FECAL (92120) [facility] Work Phone: Start: 05-01-2018 Cul bact stool aerobic isol salmonella&shigell BARBI CULTURE-STOOL (18305) [facility] Work Phone: Start: 05-01-2018 Iaad ia clostridium difficile toxin Clostridium difficile Toxin A+B, EIA (47038) [facility] Work Phone: Start: 2016 BONE DENSITY BONE DENSITY [facility] Start: 2016 Pneumococcal Vaccine: 65+ (1 of 1 - PCV) Pneumococcal Vaccine: 65+ (1 of 1 - PCV) [facility] Start: 2016 PNEUMOCOCCAL: 65+ (1 - PCV) PNEUMOCOCCAL: 65+ (1 - PCV) [facility] Start: 2016 Screening for osteoporosis Bone Density Screening [facility] Start: 10-24-2011 Provider Instructions for Treatment [facility] Work Phone: Start: 2011 RSV Vaccine (1 - Risk 60-74 years 1-dose series) RSV Vaccine (1 - Risk 60-74 years 1-dose series) [facility] Start: 2001 Pneumococcal Vaccine: 50+ (1 of 1 - PCV) Pneumococcal Vaccine: 50+ (1 of 1 - PCV) [facility] Start: 2001 SHINGRIX VACCINE (1 of 2) SHINGRIX VACCINE (1 of 2) [facility] Start: 1996 COLOGUARD (FIT-DNA) COLOGUARD (FIT-DNA) [facility] Start: 1996 Colonoscopy COLONOSCOPY [facility] Start: 1996 COLORECTAL CANCER SCREENING COLORECTAL CANCER SCREENING [facility] Start: [address] COLONOGRAPHY [facility] Start: 1996 DIABETES SCREEN DIABETES SCREEN [facility] Start: 1996 Diabetes Screening Diabetes Screening [facility] Start: 1996 FECAL OCCULT BLOOD FECAL OCCULT BLOOD [facility] Start: 1996 Lipid panel Lipid Screening [facility] Start: 1996 LIPID SCREEN LIPID SCREEN [facility] Start: 1996 Screening for malignant neoplasm of colon [facility] Start: 1996 SIGMOIDOSCOPY SIGMOIDOSCOPY [facility] Start: 1991 Mammography MAMMOGRAM [facility] Start: 1991 Screening for malignant neoplasm of breast Mammogram Screening [facility] Start: 1970 Pneumococcal Vaccine: 50+ (1 of 2 - PCV) Pneumococcal Vaccine: 50+ (1 of 2 - PCV) [facility] Start: 1970 Shingrix Vaccine (1 of 2) Shingrix Vaccine (1 of 2) [facility] Start: 1970 Urine microalbumin profile DTAP,TDAP,TD (1 - Tdap) [facility] Start: 1969 Annual PCP Team Chronic Disease Visit Annual PCP Team Chronic Disease Visit [facility] Start: 1969 Anxiety Screening Anxiety Screening [facility] Start: 1969 BP Controlled (<130/80) BP Controlled (<130/80) [facility] Start: 1969 Depression Screening Depression Screening [facility] Start: 1969 HEPATITIS C SCREENING HEPATITIS C SCREENING [facility] Start: 1969 Hepatitis C screening Hepatitis C Screening [facility] Start: 1962 Screening for malignant neoplasm of cervix Cervical Cancer Screening [facility] Start: 1951 COVID-19 VACCINE (#1) COVID-19 VACCINE (#1) [facility] Biopsy lacrimal sac BIOPSY LACRI MAL SAC 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, acquired (nasolacrimal duct obstruction), left Deviated nasal septum [facility] DXA Bone [Mass/Area] Bone density [facility] Nasal endoscopy diagnostic uni/bi spx NASAL ENDOS,DIAG,UNI/ BILATERAL Procedures Routine Hearing loss, unspecified hearing loss type, unspecified laterality Eustachian tube dysfunction, unspecified laterality Ordered: 03/01/2023 [facility] Work Phone: Comment on above: Ordered: 03/01/2023 Nasal/sinus ndsc enoch g w/dacryocstorhinostom y ENDOSCOPY NASAL/SINUS W/ DACROCYSTORHINOSTOMY 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, acquired (nasolacrimal duct obstruction), left Deviated nasal septum [facility] Septoplasty/submucou s resecj w/wo cartilage grf SEPTOPLASTY 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 Yung Myers DO Work Phone: [facility] 07-26-2023 influenza, injectabl e, quadrivalent, preservative free Dr. Yung Myers Work Phone: [facility] 07-26-2023 influenza virus vacc ine, unspecified formulation Trish Sharp MD Work Phone: [facility] 07-12-2022 influenza, injectabl e, quadrivalent, preservative free Dr. Yung Myers Work Phone: [facility] 07-12-2022 influenza, seasonal, injectable Dr. Yung Myers Work Phone: [facility] 12-02-2020 Covid (Moderna) Dr. Yung Myers Work Phone: [facility] 11-04-2020 Leleid (Moderna) Dr. Yung Myers Work Phone: [facility] 07-08-2020 influenza, injectable,quadrivalent, preservative free, pediatric Dr. Yung Myers Work Phone: [facility] 07-08-2020 tetanus toxoid, redu haider diphtheria toxoid, and acellular pertussis vaccine, adsorbed Dr. Yung Myers Work Phone: [facility] 07-08-2020 diphtheria, tetanus toxoids and acellular pertussis vaccine, unspecified formulation Dr. Yung Myers Work Phone: [facility] Work Phone: 07-08-2020 Flucelvax Quad 2019- 2020 (PF) (flu vac qs 2019(4 yr up)CD(PF)) 60 mcg ([address] Yung Myers Work Phone: [facility] Work Phone: 07-10-[address] Yung Myers Work Phone: [facility] 07-10-2018 Fluad 2017-19 65yr up(PF)45 mcg(15 mcgx3)/0.5 mL intramuscular syringe (flu vac Dr. Yung Myers Work Phone: [facility] Work Phone: Payers Date Payer Category Payer Self-pay [id number] 2021 Private Health Insurance [employer] MED ICARE SUPPLEMENT [id number] 2021 Unknown 2021 Unknown [id number] 2016 Medicare [id number] 2016 Medicare [id number] Medicare [id number] Private Health Insurance [facility] [id number] Unknown [id number] Unknown [id number] Unknown [id number] Unknown [id number] Unknown [id number] Social History Date Type Detail Facility Start: 03-07-2023 End: 11-15-2024 Caffeine Use Never smoker [facility] Work Phone: Exercise History: Exercises occasionally. [facility] Work Phone: Living Situation: Lives with spouse. [facility] Work Phone: Pets/Animals: Cat. [facility] Work Phone: Tobacco Use: Never smoker. [facility] Work Phone: Start: 01-05-2022 End: 07-26-2023 Tobacco smoking status NHIS Unknown if ever smoked [facility] Start: 1950 Sex Assigned At Female [facility] Start: 1950 Sex Assigned At Not on file [facility] Start: 03-07-2023 End: 11-15-2024 Gender identity Not on file [facility] National Score (1-100), lower number is lower risk 71 [facility] Start: 07-26-2023 Tobacco smoking status NHIS Never smoked tobacco (finding) [facility] Clinical Notes 03-01-2023 to 12-13-2024 Patient InstructionsTerra Worley MD - 12/13/2024 11:30 AM EDTPatient Terra Stewart MD - 11/21/2024 12:45 PM EDTPatient Terra Stewart MD - 11/15/2024 12:30 PM EDT Note Date & Type Note Facility 12-13-2024 Instructions Terra Worley MD - 12/13/2024 11:44 AM EDT Open ostium No tearing Even feeling air (good it's open) Outcome: S/P Lacrimal Surgery Outcomes: Improvement Post-op Diagnoses: None Follow up as needed 2. General eye care Yearly with comprehensive documented in this encounter [facility] 12-13-2024 Note Date of Procedure 12/13/2024 [place] Protocol Safety Checklist A moment of CARE was completed Sign In Sign in communication not applicable due to emergent procedure. Personnel directly involved with the procedure wore the appropriate PEE. Special Equipment: N/A. Patient/surrogate stated/verified patient name, date of , relevant allergies, intended procedure. Provider Confirms: Relevant labs, photos, and/or imaging studies have been reviewed. Intended patient and procedure match the source document(s) (e.g. consent, associated studies [imaging, pathology]). Consent obtained and matches the intended procedure. Correct side/site marked and visible. Medications required for procedure verified. Fire risk assessed and interventions discussed: N/A. Correct implant(s) confirmed including size and side: N/A. Sign Out All specimens are correctly labeled and sent: N/A. All instruments, equipment, possible retained foreign bodies accounted for. Post-procedure POC communicated to patient or surrogate. Post-procedure POC communicated to patient's multidisciplinary team. Pre Procedure Medications Lidocaine 2%/ Phenylephrine 0.5%. Procedure Notes/Findings Right Nares: Patent rhinostomy. Notes Left: crusting at the ostium, fluorescein in nose [facility] 12-13-2024 History of Present illness Narrative Patient states there is no tearing but feels air coming out of tear duct OS, even seeing droplets on glasses when doing nasal rinse. A/P: 1. s/p left endo Dacryocystorhinostomy (DCR) with guibor stent tied with 6-0 plain gut on 11/04/24 Tube fell out 11/21/24 during exam No tearing! Doing well at this time. Excellent result Patient happy with results Exam: Healed well No tube Endoscopy: Left: crusting at the ostium, fluorescein in nose -->removed crusting Open ostium No tearing Even feeling air (good it's open) Outcome: S/P Lacrimal Surgery Outcomes: Improvement Post-op Diagnoses: None Follow up as needed 2. General eye care Yearly with comprehensive The documentation for this note was completed by Tom Aldridge APRN, CNP acting as a scribe for Terra Worley MD. 12/13/2024 11:41 AM. I have confirmed and edited as necessary the relevant HPI, ophthalmic history, ROS, and the neuro exam findings as obtained by others. I have seen and examined Diamond Betts. I have discussed the case and the management of this patient's care with the Resident/Fellow, if applicable. I also have reviewed and agree with the assessment and plan as stated above and agree with all of its relevant components. I, Terra Worley MD, personally performed the services described in this documentation. All medical record entries made by the scribe were at my direction and in my presence. I have reviewed the chart and discharge instructions (if applicable) and agree that the record reflects my personal performance and is accurate and complete. documented in this encounter [facility] 12-13-2024 Note HNO ID: [id number] Author: TERRA WORLEY MD Service: ? Author Type: Physician Type: Progress Notes Filed: 12/13/2024 15:21 Note Text: Patient states there is no tearing but feels air coming out of tear duct OS, even seeing droplets on glasses when doing nasal rinse. A/P: 1. s/p left endo Dacryocystorhinostomy (DCR) with guibor stent tied with 6-0 plain gut on 11/04/24 Tube fell out 11/21/24 during exam No tearing! Doing well at this time. Excellent result Patient happy with results Exam: Healed well No tube Endoscopy: Left: crusting at the ostium, fluorescein in nose -->removed crusting Open ostium No tearing Even feeling air (good it's open) Outcome: S/P Lacrimal Surgery Outcomes: Improvement Post-op Diagnoses: None Follow up as needed 2. General eye care Yearly with comprehensive The documentation for this note was completed by Tom Aldridge APRN, CNP acting as a scribe for Terra Worley MD. 12/13/2024 11:41 AM. I have confirmed and edited as necessary the relevant HPI, ophthalmic history, ROS, and the neuro exam findings as obtained by others. I have seen and examined Diamond Betts. I have discussed the case and the management of this patient's care with the Resident/Fellow, if applicable. I also have reviewed and agree with the assessment and plan as stated above and agree with all of its relevant components. I, Terra Worley MD, personally performed the services described in this documentation. All medical record entries made by the scribe were at my direction and in my presence. I have reviewed the chart and discharge instructions (if applicable) and agree that the record reflects my personal performance and is accurate and complete. [facility] 11-21-2024 Note Date of Procedure 11/21/2024 [place] Protocol Safety Checklist Sign In: A moment to CARE completed, Special equipment verified, Appropriate PPE verified, Patient name, date of , allergies and intended procedure verified. Provider Confirms: Correct side/site marked visible, Intended patient and procedure match the source document, Consent documented and matches the intended procedure. No relevant labs, photos, and/or imaging studies to review. Medications required for procedure verified. No fire risk. No implants. Pre Procedure Medications Lidocaine 2%/ Phenylephrine 0.5%. Procedure Notes/Findings Right Nares: Patent rhinostomy. Sign Out Sign out discussion completed, All instruments, equipment, and/or possible retained foreign bodies accounted for, Post-procedure follow up management communicated. No specimens. Notes Left tube fell out 5 FU injected to left ostium for granulation tissue \ open ostium, some granulation tissue, fluorescein in nose, unable to see tube [facility] 11-21-2024 Instructions Terra Worley MD - 11/21/2024 3:29 PM EDT Cont antibiotic/steroid eye drops to left eye twice daily x 1 more week, then stop. Use antibiotic ointment to tube as needed for discomfort. Ok to use artifical tears as needed Use Rickie Med Sinus rinses twice daily x 3 months Recc flonase nasal spray 1 puff left nare daily Cancel 12/02/24 appt Keep 01/01/25 appt, return precautions given documented in this encounter [facility] 11-21-2024 History of Present illness Narrative A/P: 1. Left tube coming out s/p left endo Dacryocystorhinostomy (DCR) with guibor stent tied with 6-0 plain gut on 11/04/24 Very little tearing Using sinus rinses When using drops this morning, noticed tube coming out from eye Exam: Tube prolapsed from upper and lower punctum left No injection left eye No erythema or warmth Good contour of eyelids No lagophthalmos No sign of infection. Endoscopy: Left: open ostium, some granulation tissue, fluorescein in nose, unable to see tube--->injected 5FU 0.5 cc to left ostium no complications Tube fell out during exam from eyelid Likely was already intracanalicular Cont antibiotic/steroid eye drops to left eye twice daily x 1 more week, then stop. Use antibiotic ointment to tube as needed for discomfort. Ok to use artifical tears as needed Use Rickie Med Sinus rinses twice daily x 3 months Recc flonase nasal spray 1 puff left nare daily Cancel 12/02/24 appt Keep 01/01/25 appt, return precautions given The documentation for this note was completed by Tom Aldridge APRN, CNP acting as a scribe for Terra Worley MD. 11/21/2024 3:29 PM. I have confirmed and edited as necessary the relevant HPI, ophthalmic history, ROS, and the neuro exam findings as obtained by others. I have seen and examined Diamond Betts. I have discussed the case and the management of this patient's care with the Resident/Fellow, if applicable. I also have reviewed and agree with the assessment and plan as stated above and agree with all of its relevant components. I, Terra Worley MD, personally performed the services described in this documentation. All medical record entries made by the scribe were at my direction and in my presence. I have reviewed the chart and discharge instructions (if applicable) and agree that the record reflects my personal performance and is accurate and complete. documented in this encounter [facility] 11-21-2024 Note HNO ID: [id number] Author: TERRA WORLEY MD Service: ? Author Type: Physician Type: Progress Notes Filed: 11/21/2024 15:31 Note Text: A/P: 1. Left tube coming out s/p left endo Dacryocystorhinostomy (DCR) with guibor stent tied with 6-0 plain gut on 11/04/24 Very little tearing Using sinus rinses When using drops this morning, noticed tube coming out from eye Exam: Tube prolapsed from upper and lower punctum left No injection left eye No erythema or warmth Good contour of eyelids No lagophthalmos No sign of infection. Endoscopy: Left: open ostium, some granulation tissue, fluorescein in nose, unable to see tube--->injected 5FU 0.5 cc to left ostium no complications Tube fell out during exam from eyelid Likely was already intracanalicular Cont antibiotic/steroid eye drops to left eye twice daily x 1 more week, then stop. Use antibiotic ointment to tube as needed for discomfort. Ok to use artifical tears as needed Use Rickie Med Sinus rinses twice daily x 3 months Recc flonase nasal spray 1 puff left nare daily Cancel 12/02/24 appt Keep 01/01/25 appt, return precautions given The documentation for this note was completed by Tom Aldridge APRN, CNP acting as a scribe for Terra Worley MD. 11/21/2024 3:29 PM. I have confirmed and edited as necessary the relevant HPI, ophthalmic history, ROS, and the neuro exam findings as obtained by others. I have seen and examined Diamond Betts. I have discussed the case and the management of this patient's care with the Resident/Fellow, if applicable. I also have reviewed and agree with the assessment and plan as stated above and agree with all of its relevant components. I, Terra Worley MD, personally performed the services described in this documentation. All medical record entries made by the scribe were at my direction and in my presence. I have reviewed the chart and discharge instructions (if applicable) and agree that the record reflects my personal performance and is accurate and complete. [facility] 11-21-2024 Telephone encounter Note Ms. Zepeda tube is coming out and in front of her eye. They will come to the [facility] to be seen by North to try to reposition. They are coming from about an hour away so I'll put them on SDA and to then page North. [facility] 11-21-2024 Miscellaneous Notes Ms. Zepeda tube is coming out and in front of her eye. They will come to the [facility] to be seen by North to try to reposition. They are coming from about an hour away so I'll put them on SDA and to then page North. documented in this encounter [facility] 11-15-2024 Note Date of Procedure 11/15/2024 [place] Protocol Safety Checklist Sign In: A moment to CARE completed, Special equipment verified, Appropriate PPE verified, Patient name, date of , allergies and intended procedure verified. Provider Confirms: Correct side/site marked visible, Intended patient and procedure match the source document, Consent documented and matches the intended procedure. No relevant labs, photos, and/or imaging studies to review. Medications required for procedure verified. No fire risk. No implants. Pre Procedure Medications Lidocaine 2%/ Phenylephrine 0.5%. Procedure Notes/Findings Right Nares: Patent rhinostomy. Sign Out Sign out discussion completed, All instruments, equipment, and/or possible retained foreign bodies accounted for, Post-procedure follow up management communicated. No specimens. Notes Left: packing removed , fluorescin in ostium but some blockage from packing , ostium appears open with good movement of tube [facility] 11-15-2024 Instructions Terra Worley MD - 11/15/2024 3:33 PM EDT Cont antibiotic/steroid eye drops to left eye four times a day x 1 wk then twice daily x 1 more week, then stop. Use antibiotic ointment to tube as needed for discomfort. Ok to use artifical tears as needed Use Rickie Med Sinus rinses twice daily x 3 months Recc flonase nasal spray 1 puff left nare daily Do NOT cut or pull on tube, avoid rubbing inner corner of eye Tubes will be removed approx 3 months after surgery in clinic Follow up in 2-[address] Worley [facility] , overbook 12/02/24 1:15pm , possible 5FU documented in this encounter [facility] 11-15-2024 History of Present illness Narrative A/P: 1. s/p left endo Dacryocystorhinostomy (DCR) with guibor stent tied with 6-0 plain gut on 11/04/24 Very little tearing Using sinus rinses Doing well at this time. Exam: Anticipated postsurgical ecchymosis and edema No erythema or warmth Good contour of eyelids No lagophthalmos Tube in excellent position, no erosion No sign of infection. Endoscopy: Left: packing removed , fluorescin in ostium but some blockage from packing , ostium appears open with good movement of tube Post-operative state Cont antibiotic/steroid eye drops to left eye four times a day x 1 wk then twice daily x 1 more week, then stop. Use antibiotic ointment to tube as needed for discomfort. Ok to use artifical tears as needed Use Rickie Med Sinus rinses twice daily x 3 months Recc flonase nasal spray 1 puff left nare daily Do NOT cut or pull on tube, avoid rubbing inner corner of eye Tubes will be removed approx 3 months after surgery in clinic Follow up in 2-[address] Worley [facility] , overbook 12/02/24 1:15pm , possible 5FU The documentation for this note was completed by Tom Aldridge APRN, CNP acting as a scribe for Terra Worley MD. 11/15/2024 1:06 PM. I have confirmed and edited as necessary the relevant HPI, ophthalmic history, ROS, and the neuro exam findings as obtained by others. I have seen and examined Diamond Healy Betts. I have discussed the case and the management of this patient's care with the Resident/Fellow, if applicable. I also have reviewed and agree with the assessment and plan as stated above and agree with all of its relevant components. I, Terra Worley MD, personally performed the services described in this documentation. All medical record entries made by the scribe were at my direction and in my presence. I have reviewed the chart and discharge instructions (if applicable) and agree that the record reflects my personal performance and is accurate and complete. documented in this encounter [facility] 11-15-2024 Note HNO ID: [id number] Author: TERRA WORLEY MD Service: ? Author Type: Physician Type: Progress Notes Filed: 11/15/2024 15:33 Note Text: A/P: 1. s/p left endo Dacryocystorhinostomy (DCR) with guibor stent tied with 6-0 plain gut on 11/04/24 Very little tearing Using sinus rinses Doing well at this time. Exam: Anticipated postsurgical ecchymosis and edema No erythema or warmth Good contour of eyelids No lagophthalmos Tube in excellent position, no erosion No sign of infection. Endoscopy: Left: packing removed , fluorescin in ostium but some blockage from packing , ostium appears open with good movement of tube Post-operative state Cont antibiotic/steroid eye drops to left eye four times a day x 1 wk then twice daily x 1 more week, then stop. Use antibiotic ointment to tube as needed for discomfort. Ok to use artifical tears as needed Use Rickie Med Sinus rinses twice daily x 3 months Recc flonase nasal spray 1 puff left nare daily Do NOT cut or pull on tube, avoid rubbing inner corner of eye Tubes will be removed approx 3 months after surgery in clinic Follow up in 2-[address] Worley [facility] , overbook 12/02/24 1:15pm , possible 5FU The documentation for this note was completed by Tom Aldridge APRN, CNP acting as a scribe for Terra Worley MD. 11/15/2024 1:06 PM. I have confirmed and edited as necessary the relevant HPI, ophthalmic history, ROS, and the neuro exam findings as obtained by others. I have seen and examined Diamond Betts. I have discussed the case and the management of this patient's care with the Resident/Fellow, if applicable. I also have reviewed and agree with the assessment and plan as stated above and agree with all of its relevant components. I, Terra Worley MD, personally performed the services described in this documentation. All medical record entries made by the scribe were at my direction and in my presence. I have reviewed the chart and discharge instructions (if applicable) and agree that the record reflects my personal performance and is accurate and complete. [facility] 11-05-2024 Telephone encounter Note Called pt POD#1 Pt doing well Discussed limitations and use of ice and ointment/drops Plan to f/u next week as scheduled for post-op appt Pt will call back if any questions or concerns North Barajas PA-C November 05, 2024 [facility] 11-05-2024 Miscellaneous Notes Called pt POD#1 Pt doing well Discussed limitations and use of ice and ointment/drops Plan to f/u next week as scheduled for post-op appt Pt will call back if any questions or concerns North Barajas PA-C November 05, 2024 documented in this encounter [facility] 11-04-2024 Note HNO ID: [id number] Author: ELLE PARKS APRN.TECHNICAL TRAINING INSTRUCTOR Service: ? 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 Staffing TECHNICAL TRAINING INSTRUCTOR: Elle Parks APRN.TECHNICAL TRAINING INSTRUCTOR Performed by: TECHNICAL TRAINING INSTRUCTOR Indications and Patient Condition Indications for airway management: anesthesia Preoxygenated: yes anesthesia circuit Method: sleep Difficult Mask: No Final Airway Details Final airway type: endotracheal airway Final Endotracheal Airway: ETT Cuffed: yes Successful intubation technique: video laryngoscopy Devices used: Osullivan Blade: Tameka Blade size: #3 ETT size (mm): 6.5 Measured from: lips Measurement (cm): 20 Placement verified by: capnometry Cormack-Lehane Classification: grade I - full view of glottis Number of attempts at approach: 1 Airway trauma: Atraumatic. Failed airway: no Airway not difficult Comments Atraumatic SIGNATURE: Elle Parks APRN.TECHNICAL TRAINING INSTRUCTOR PATIENT NAME: Diamond Betts DATE: November 04, 2024 TIME: 8:09 AM CSN: [id number] [facility] 10-16-2024 Evaluation note Diagnosis Onset Date Resolution Essential hypertension acute Fe bruary 2024 9:52am Nasolacrimal duct obstruction, acquired acute September 282024 9:52am Osteoporosis acute September 9:52am Essential hypertension acute 2024 9:54am Osteoporosis acute January 14 9:54am Hyperlipemia chronic January 14 9:54am [place] [employer] Work Phone: 1(501) 716-608901-24-2025 Instructions* Patient Instructions* Terra Worley MD - 09/20/2024 11:10 AM EST Recc dacryocystorhinostomy (DCR) Discussed external vs endoscopic dacryocystorhinostomy (DCR) with stent placement May need septoplasty or biopsy Success ~90%. Post op recovery discussed. Will have dissolvable nasal packing after surgery; may have bloody discharge from nose ~ 1-2 days post op, even bleeding episode If bleeding episode recc holding nose for 15 min and ice on forehead and back of neck; if not stopped recc calling and going to nearest ER 1-2 wks bruising/swelling After surgery will be on drops four times a day x 1 week then twice a day x 1 week Saline Nasal spray twice a day for 1 wk Start sinus rinses: start 3 days after surgery twice a day for 1 mo (Rickie Med Sinus rinse with distilled water) Stents are removed in 3 mo Discussed if signs of infection (medial [place]hal redness, swelling) need to call office [phone] Plan: Left endoscopic Dacryocystorhinostomy (DCR) with stent placement Possible septoplasty/biopsy General 1 hr Avoid aspirin, ibuprofen, nsaids, vitamin e , fish oil 2 wks prior and 1 wk post Nothing to eat or drink 8 hrs prior to surgery except medicines day of with small sip of water Will need courier driver if having sedation surgery For surgery [facility], call The patient was offered a surgery/procedure at a [facility]. The surgeon/proceduralist and patient have discussed in detail the risk of exposure to and/or potential harm posed by the COVID-19 virus with having a surgery/procedure at this time versus the risk of delaying the surgery/pr ocedure. It is not possible to know either the risk of delaying the surgery or procedure or chance of getting an infection with perfect accuracy, but a joint decision was made between the patient andthe surgeon/proceduralist to proceed at this time with the scheduled surgery/procedure as indicatedon the consent form. An extensive discussion of the risks, benefits, alternatives of the above surgeries was conducted with the patient. The patient understood the risks including, but not limited to: bleeding, infection, scarring, asymmetry, need for future additional surgery, poor cosmesis, worsening dry eyes, orbital hemorrhage causing loss of vision, nerve damage, muscle damage, double vision, complications of anesthesia including loss of life. Discussed with patient these surgeries in most cases are performed with resident and/or fellow participation at the level deemed fit by Dr. Worley. Patient verbalizes an understanding. The patient wished to proceed with surgery. Post operative course reviewed. 1-2 wks of bruising and swelling. Ice compresses (ie: frozen peas in Ziploc bag with cloth between bag and skin) for15 min every hourfor the first 3 days after surgery; then warm compresses as needed for bruising (from post op days 3-7) Avoid blood thinners including aspirin, Advil, Motrin, Aleve, vitamin E, fish oil at least 2 wks prior to surgery. Antibiotic ointment to eyes and incisions four times a day after surgery for 1 week. No heavy lifting over 15 lbs or any strenuous exercise for 1 wk after surgery. Walking is okay after surgery. MEDICATION TO DISCONTINUE PRIOR TO SURGERY ARE YOU TAKING BLOOD THINNERS? - BRING THIS TO THE DOCTOR'S ATTENTION Important information that must be followed prior to surgery: Many prescribed and over the counter medications cause thinning of the blood that may cause excess bleeding during or after your surgery. * Your primary care provider MUST approve the discontinuation of the following medications at the specified time prior to your surgery. * To minimize the risk of problems related to bleeding, we ask that you strictly adhere to the guidelines below. * If you have any questions regarding these or other medications that may thin the blood, please call our Preadmission testing Office at [phone] or [phone]. [phone]. Medication your doctor MUST approve to stop Medication to stop 2 weeks prior to surgery Arixtra (Fondaparinux) Aspirin (if prescribed) Brillinta (Ticagrelor Coumadin (Warfarin) Eliquis (Apixaban) Fragmin (Dalteparin) Heparin Innohep (Tinzaparin) Lovenox (Enoxaparin) Persantine (Dipyridamole) Plavix (Clopidogrel Bisulfate) Pletal (Ciloxtazol) Pradaxa (Dabigatran) Prasugrel (Effient) Ticlid (Ticlopidine Hydrochloride) Vorapaxar (Zontivity) Xarelto (Rivaroxaban) Advil (Ibuprofen) Aleve (Naproxen Sodium) Aspirin, Baby Aspirin (if not Prescribed) Aleah (Aspirin) Biotin (Vitamin H) Bufferin (Aspirin) Celebrex (Celecoxib) Excedrin (Migraine relief) Ecotrin (Aspirin) Garlic supplement Gingko (Ginkgo biloba) Glucosamine Chondroitin CoQ10 (Duraflex) Herbal extracts Ibuprofen (Caldoror) Indocin (Indomethacin) Meloxicam (Mobic, Vivlodex) Motrin (Ibuprofen) Multi-vitamins Nuprin (Ibuprofen) Naproxen (Naprosyn) Ocuvite (Androvite) [place] 3, Krill oil, Fish oil, Flax seed oil Pamprin (Pamabrom) Preservision (AREDS) Trental (Pentoxifylline) Turmeric (Curcuma Longa) Vitamin E (Alpha tocopherol) Other HOLD 1 WEEK PRIOR TO SURGERY GLP-1 (Ozempic Will, Caitlyn, Byetta, Byquinnremohsen, Victoza, Saxenda Mounjaro, Zepbound) [facility] NoteDate of Procedure 09/20/2024 [place] Protocol Safety Checklist Sign In: A moment to CARE completed, Special equipment verified, Appropriate PPE verified, Patient name, date of , allergies and intended procedure verified. Provider Confirms: Correct side/site marked visible, Intended patient and procedure match the source document, Consent documented and matches the intended procedure. No relevant labs, photos, and/or imaging studies to review. Medications required for procedure verified. No fire risk. No implants. Pre Procedure Medications Lidocaine 2%/ Phenylephrine 0.5%. Procedure Notes/Findings Right Nares: Patent rhinostomy. Sign Out Sign out discussion completed, All instruments, equipment, and/or possible retained foreign bodies accounted for, Post-procedure follow up management communicated. No specimens. Notes Left: good view up to uncinate process and [facility] History of Present illness Narrative* Terra Worley MD - 09/20/2024 10:30 AM EST Left EndoDCR eval. Constant tearing OS. Had stent put in about 5 years ago, had it removed in March because it was not improving tearing. Not using gtts. Also noticing itching in inner corner OS A/p: Tearing left eye x 5 years S/p lacrimal stent left eye 2019 ---> left stent in for 5 years, was just removed in March ( in [place]) Saw Dr. Sharp 07/05/24: cNLDO Exam Increased tear mckinley left eye + DDT 5/5 left eye Irrigation: Left: defer today Endoscopy: Left: good view up to uncinate process and middle turbinate Recc dacryocystorhinostomy (DCR) Discussed external vs endoscopic dacryocystorhinostomy (DCR) with stent placement May need septoplasty or biopsy Success ~90%. Post op recovery discussed. Will have dissolvable nasal packing after surgery; may have bloody discharge from nose ~ 1-2 days post op, even bleeding episode If bleeding episode recc holding nose for 15 min and ice on forehead and back of neck; if not stopped recc calling and going to nearest ER 1-2 wks bruising/swelling After surgery will be on drops four times a day x 1 week then twice a day x 1 week Saline Nasal spray twice a day for 1 wk Start sinus rinses: start 3 days after surgery twice a day for 1 mo (Rickie Med Sinus rinse with distilled water) Stents are removed in 3 mo Discussed if signs of infection (medial [place] redness, swelling) need to call office [phone] Plan: Left endoscopic Dacryocystorhinostomy (DCR) with stent placement Possible septoplasty/biopsy General 1 hr Avoid aspirin, ibuprofen, nsaids, vitamin e , fish oil 2 wks prior and 1 wk post Nothing to eat or drink 8 hrs prior to surgery except medicines day of with small sip of water Will need courier driver if having sedation surgery For surgery [facility], call The patient was offered a surgery/procedure at a [facility] facility. The surgeon/proceduralist and patient have discussed in detail the risk of exposure to and/or potential harm posed by the COVID-19 virus with having a surgery/procedure at this time versus the risk of delaying the surgery/pr ocedure. It is not possible to know either the risk of delaying the surgery or procedure or chance of getting an infection with perfect accuracy, but a joint decision was made between the patient andthe surgeon/proceduralist to proceed at this time with the scheduled surgery/procedure as indicatedon the consent form. An extensive discussion of the risks, benefits, alternatives of the above surgeries was conducted with the patient. The patient understood the risks including, but not limited to: bleeding, infection, scarring, asymmetry, need for future additional surgery, poor cosmesis, worsening dry eyes, orbital hemorrhage causing loss of vision, nerve damage, muscle damage, double vision, complications of anesthesia including loss of life. Discussed with patient these surgeries in most cases are performed with resident and/or fellow participation at the level deemed fit by Dr. Worley. Patient verbalizes an understanding. The patient wished to proceed with surgery. Post operative course reviewed. 1-2 wks of bruising and swelling. Ice compresses (ie: frozen peas in Ziploc bag with cloth between bag and skin) for15 min every hourfor the first 3 days after surgery; then warm compresses as needed for bruising (from post op days 3-7) Avoid blood thinners including aspirin, Advil, Motrin, Aleve, vitamin E, fish oil at least 2 wks prior to surgery. Antibiotic ointment to eyes and incisions four times a day after surgery for 1 week. No heavy lifting over 15 lbs or any strenuous exercise for 1 wk after surgery. Walking is okay after surgery. The documentation for this note was completed by Tom Aldridge APRN, CNP acting as a scribe for Terra Worley MD. 09/20/2024 11:07 AM. I have confirmed and edited as necessary the relevant HPI, ophthalmic history, ROS, and the neuro exam findings as obtained by others. I have seen and examined Diamond Betts. I have discussed the case and the management of this patient's care with the Resident/Fellow, if applicable. I also have reviewed and agree with the assessment and plan as stated above and agree withall of its relevant components. I, Terra Worley MD, personally performed the services described in this documentation. All medical record entries made by the scribe were at my direction and in my presence. I have reviewed the chart and discharge instructions (if applicable) and agree that the record reflects my personal performance and is accurate and complete. documented in this encounterPrem[facility]25 NoteHNO ID: [id number] Author: TERRA WORLEY MD Service: ? Author Type: Physician Type: Progress Notes Filed: 09/20/2024 11:10 Note Text: Left EndoDCR eval. Constant tearing OS. Had stent put in about 5 years ago, had it removed in March because it was not improving tearing. Not using gtts. Also noticing itching in inner corner OS A/p: Tearing left eye x 5 years S/p lacrimal stent left eye 2019 ---> left stent in for 5 years, was just removed in March (Dr. Graham in [place]) Saw Dr. Sharp 07/05/24: cNLDO Exam Increased tear mckinley left eye + DDT 5/5 left eye Irrigation: Left: defer today Endoscopy: Left: good view up to uncinate process and middle turbinate Recc dacryocystorhinostomy (DCR) Discussed external vs endoscopic dacryocystorhinostomy (DCR) with stent placement May need septoplasty or biopsy Success ~90%. Post op recovery discussed. Will have dissolvable nasal packing after surgery; may have bloody discharge from nose ~ 1-2 days post op, even bleeding episode If bleeding episode recc holding nose for 15 min and ice on forehead and back of neck; if not stopped recc calling and going to nearest ER 1-2 wks bruising/swelling After surgery will be on drops four times a day x 1 week then twice a day x 1 week Saline Nasal spray twice a day for 1 wk Start sinus rinses: start 3 days after surgery twice a day for 1 mo (Rickie Med Sinus rinse with distilled water) Stents are removed in 3 mo Discussed if signs of infection (medial [place] redness, swelling) need to call office [phone] Plan: Left endoscopic Dacryocystorhinostomy (DCR) with stent placement Possible septoplasty/biopsy General 1 hr Avoid aspirin, ibuprofen, nsaids, vitamin e , fish oil 2 wks prior and 1 wk post Nothing to eat or drink 8 hrs prior to surgery except medicines day of with small sip of water Will need courier driver if having sedation surgery For surgery [facility], call The patient was offered a surgery/procedure at a [facility] facility. The surgeon/proceduralist and patient have discussed in detail the risk of exposure to and/or potential harm posed by the COVID-19 virus with having a surgery/procedure at this time versus the risk of delaying the surgery/procedure. It is not possible to know either the risk of delaying the surgery or procedure or chance of getting an infection with perfect accuracy, but a joint decision was made between the patient and the surgeon/proceduralist to proceed at this time with the scheduled surgery/procedure as indicated on the consent form. An extensive discussion of the risks, benefits, alternatives of the above surgeries was conducted with the patient. The patient understood the risks including, but not limited to: bleeding, infection, scarring, asymmetry, need for future additional surgery, poor cosmesis, worsening dry eyes, orbital hemorrhage causing loss of vision, nerve damage, muscle damage, double vision, complications of anesthesia including loss of life. Discussed with patient these surgeries in most cases are performed with resident and/or fellow participation at the level deemed fit by Dr. Worley. Patient verbalizes an understanding. The patient wished to proceed with surgery. Post operative course reviewed. 1-2 wks of bruising and swelling. Ice compresses (ie: frozen peas in Ziploc bag with cloth between bag and skin) for15 min every hour for the first 3 days after surgery; then warm compresses as needed for bruising (from post op days 3-7) Avoid blood thinners including aspirin, Advil, Motrin, Aleve, vitamin E, fish oil at least 2 wks prior to surgery. Antibiotic ointment to eyes and incisions four times a day after surgery for 1 week. No heavy lifting over 15 lbs or any strenuous exercise for 1 wk after surgery. Walking is okay after surgery. The documentation for this note was completed by Tom Aldridge APRN, CNP acting as a scribe for Terra Worley MD. 09/20/2024 11:07 AM. I have confirmed and edited as necessary the relevant HPI, ophthalmic history, ROS, and the neuro exam findings as obtained by others. I have seen and examined Diamond Betts. I have discussed the case and the management of this patient's care with the Resident/Fellow, if applicable. I also have reviewed and agree with the assessment and plan as stated above and agree with all of its relevant components. I, Terra Worley MD, personally performed the services described in this documentation. All medical record entries made by the scribe were at my direction and in my presence. I have reviewed the chart and discharge instructions (if applicable) and agree that the record reflects my personal performance and is accurate and complete.[facility]11-08-2024 NoteDate of Procedure 07/05/2024 [place] Protocol Safety Checklist Sign In: A moment to CARE completed, Special equipment verified, Appropriate PPE verified, Patient name, date of , allergies and intended procedure verified. Provider Confirms: Correct side/site marked visible, Consent documented and matches the intended procedure, Intended patient and procedure match the source document. No relevant labs, photos, and/or imaging studies to review. No medications required for procedure. No fire risk. No implants. Site Left lower puncta. Anesthesia Topical 4% Lidocaine on cotton swabs. Sign Out Sign out discussion completed, All instruments, equipment, and/or possible retained foreign bodies accounted for, Post-procedure follow up management communicated. No specimens. Notes left: 100% regurg opposing [facility] History of Present illness Narrative* Trish Sharp MD - 07/05/2024 10:45 AM EST NEW patient Here for tearing only the left eye over [address] graham put stent in for 5 years didnt help no better with drops exam inc tear mckinley left inc ddt left mild prom globes mild laxity irrigation: left: 100% regurg opposing maikel nldo left refractory to stents [facility] dcr left and meet dr worley in [place] if does endoscopy there I have confirmed and edited as necessary the relevant HPI, ophthalmic history, ROS, and the neuro exam findings as obtained by others. I have seen and examined Diamond Betts. I have discussed the case and the management of this patient's care with the Resident/Fellow, if applicable. I also have reviewed and agree with the assessment and plan as stated above and agree withall of its relevant components. documented in this encounterPrem[facility]11-08-2024 NoteHNO ID: [id number] Author: TRISH SHARP MD Service: ? Author Type: Physician Type: Progress Notes Filed: 07/05/2024 12:01 Note Text: NEW patient Here for tearing only the left eye over [address] graham put stent in for 5 years didnt help no better with drops exam inc tear mckinley left inc ddt left mild prom globes mild laxity irrigation: left: 100% regurg opposing maikel nldo left refractory to stents [facility] dcr left and meet dr worley in [place] if does endoscopy there I have confirmed and edited as necessary the relevant HPI, ophthalmic history, ROS, and the neuro exam findings as obtained by others. I have seen and examined Diamond Monet Ruizen. I have discussed the case and the management of this patient's care with the Resident/Fellow, if applicable. I also have reviewed and agree with the assessment and plan as stated above and agree with all of its relevant components.[facility]07-05-2023 History and physical note* Leonel Gaviria MD - 03/01/2023 2:59 PM EDT Diamond Betts is a 72 year old old female who presents today A NEW PATIENT WITH POSSIBLE EUSTACHIAN TUBE DYSFUNCTION HPI: Patient has had many years of fullness and pressure in both ears. Feels as if the ears are blocked or clogged. Had audiometric testing that did show a slight asymmetrical external hearing loss. An MRI was performed in 2018 because of this. In 2020 tubes were in the ears to see if it would helpalthough her physicians that probably would not. An audio time showed same sensorineural hearing loss Initial audiogram was obtained in November 2022 and also performed exam sensorineural hearing loss without eustachian tube dysfunction or a conductive hearing loss. Patient has clean opening closing the mouth. Has never been told she has TMJ. HEADACHES: None ALLERGIES: None CURRENT NASAL AND SINUS MEDICATIONS: None CT SCAN FINDINGS: PAST MEDICAL HISTORY: Smoking: ROS: Constitutional: Denies having night sweats, constant fatigue, loss of appetite, or recent substantial weight loss. Eyes: The patient denies having blurred vision or double vision. Respiratory: Denies symptoms of shortness of breath, noisy breathing, hoarseness, or a chronic cough. GI: Denies symptoms of heartburn, acid regurgitation, or the known presence of a hiatal hernia. 10-point review of systems was otherwise normal. PHYSICAL EXAM: On physical examination patient is a well-developed, well nourished patient who is sitting comfortably. Evaluation of his mental status reveales patient to be alert and oriented. Mood was appropriate. Physical examination of the head, neck, external ears, mouth and face fail to demonstrate any significant abnormality or assymetry to critical face to face observation. The salivary glands were normal. Facial motion was intact. MOUTH: Examination of the mouth included the lips, teeth, gums, hard and soft palate, tongue, floorof the mouth, and buccal mucosa were healthy to inspection and the mucosa was moist. OROPHARYNX: Examination of the oropharynx, including the soft palate, tonsillar fossa and posteriorpharyngeal richardson were unremarkable and symmetrical. NASOPHARYNX/HYPOPHARYNX: Mirror examination of the nasopharynx and hypopharynx including the choana, eustachian tubes, roof of the nasopharynx, base of the tongue, epiglottis, aryepiglottic folds, pyriform sinuses, false vocal cords, true vocal cords, and the upper trachea were healthy in appearance, moist and without asymmetry, masses or ulceration. NECK: Inspection and palpation of the neck revealed no scars, masses crepitation or asymmetries. The thyroid was not palpable and was free of masses. EARS: Otoscoptic examination of the external canal, tympanic membrane and middle ear was unremarkable. Tympanic membrane was intact. PERTINENT EXAM RELATED TO CHIEF COMPLAINT: NOSE: External Nose: Internal nasal exam: ORAL CAVITY, OROPHARYNX, NASOPHARYNX: Nasal endoscopy was necessary in order to evaluate the nasal chamber and nasopharynx. NASAL ENDOSCOPY PRE-OPERATIVE DIAGNOSIS: PLACE OF SERVICE: [facility] office INDICATIONS: To delineate intranasal diagnosis ANESTHESIA: Chaya's Solution PROCEDURE: Following an appropriate discussion of the risks, benefits and alternative therapies involved with performing this procedure, the patient was place in the upright position in the examination chair. Each nostril was then sprayed with Chaya's Solution. After a sufficient duration, the 0-degree nasal endoscope was inserted into the bilateral nasal cavity, and a complete endonasal examination was performed. The findings are noted below. The patient is stable and the procedure was well tolerated without complications. FINDINGS: POST-PROCEDURE DIAGNOSIS: Eustachian tube unremarkable in nasopharynx with an endoscopically ORDERS: Office Visit CP on 03/07/23 NASAL ENDOS,DIAG,UNI/ BILATERAL DIAGNOSIS: (H91.90) Hearing loss, unspecified hearing loss type, unspecified laterality (primary encounter diagnosis) (H69.90) Eustachian tube dysfunction, unspecified laterality Sensorineural hearing loss PLAN: I reassured patient and urged her to return to her physicians in her home to get an audiometric evaluation for hearing aid. Also she will see her dentist to assess for eustachian tube dysfunctionLeonel Gaviria MD documented in this encounterPrem[facility]* Diagnosis Onset Date Resolution Status Essential hypertension acute Hyperlipemia chronic [facility] Work Phone: Evaluation note* Diagnosis Onset Date Resolution Status Essential hypertension acute [facility] Work Phone: Evaluation note* Diagnosis Hearing loss, unspecified hearing loss type, unspecified laterality- Primary Eustachian tube dysfunction, unspecified laterality [facility] Diagnosis Onset Date Resolution Status Essential hypertension acute Hyperlipemia chronic Seasonal allergies chronic [facility] Work Phone: Evaluation note* Diagnosis Epiphora due to insufficient drainage of left side- Primary Epiphora due to insufficient drainage Nldo, acquired (nasolacrimal duct obstruction), left documented in this encounter [facility] note* Diagnosis Epiphora due to insufficient drainage of left side- Primary Epiphora due to insufficient drainage Nldo, acquired (nasolacrimal duct obstruction), left documented in this encounter [facility] note* Diagnosis Epiphora due to insufficient drainage of left side- Primary Epiphora due to insufficient drainage Nldo, acquired (nasolacrimal duct obstruction), left Deviated nasal septum documented in this encounter [facility] note* Diagnosis Post-operative state- Primary Other postprocedural status documented in this encounter [facility] note* Diagnosis Post-operative state- Primary Other postprocedural status documented in this encounter [facility] note* Diagnosis Post-operative state- Primary Other postprocedural status Epiphora due to insufficient drainage of left side Epiphora due to insufficient drainage documented in this encounter [facility] for referral (narrative)No reason for referral information availableWest [facility] Work Phone: Family History No Family History Records FoundUnknown Family Member Name Dates Details Alcohol Abuse Comments:Brother. Status:Active Diabetes Mellitus Comments:Father. Brother. Status:Active Heart Disease Comments:Father. Brother. Status:Active Parkinson's Disease Comments:Mother. Status:Active Unknown Family Member Name Dates Details Alcohol Abuse Comments:Brother. Status:Active Diabetes Mellitus Comments:Father. Brother. Status:Active Heart Disease Comments:Father. Brother. Status:Active Parkinson's Disease Comments:Mother. Status:Active Relationship Condition Age at Onset Recorded Date/T mychal father Diabetes mellitus Unknown Cardiac disease Unknown mother Hypertension Unknown Parkinson's disease Unknown sister Kidney disorder Unknown brother Cardiac disease Unknown Instructions Name Dates Details Nonsmoker : How to access he alth information online Indication:Nonsmoker Nonsmoker : How to access he alth information online - Detail Indication:Nonsmoker Abdominal pain, acute : Stella ent Instructions Indication:Abdominal pain, acute Name Dates Details How to access health informa tion online Indication:Nonsmoker Start:01-May-2018 Instruction Type:Patient Edu cation How to access health informa tion online - Detail Indication:Nonsmoker Start:01-May-2018 Instruction Type:Patient Edu cation Patient Instructions Indication:Abdominal pain, acute Start:01-May-2018 Instruction Type:Provider Instructions for Treatment Chief Complaint and Reason for Visit Chief Complaint 6 M FU Reason for Visit Essential hypertensi on Hyperlipemia Chief Complaint 6 M FU OSTEOPOROSIS Reason for Visit Essential hypertensi on Chief Complaint 6 M FU Reason for Visit Essential hypertensi on Hyperlipemia Seasonal allergies Chief Complaint Admit Date SURGERY CLEARANCE October 16, 2024 9:52am 6 M FU January 14, 2025 9:54a m Reason for Visit Admit Date Essential hypertension October 16 9:52am Nasolacrimal duct obstruction, acquired October 16, 2024 9:52am Osteoporosis October 16, 2024 9:52am Essential hypertension January 14, 2025 9: 54am Osteoporosis January 14, 2025 9:54a m Hyperlipemia January 14, 2025 9:54a m Advance Directives No Advanced Directives Records Found Advance Directive Response Recorded Date/ Time Living Will Yes May 04 1:10pm 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 Yes May 04, 2018 1:10pm Advance Directive Response Recorded Date/ Time Living Will Yes March 04, 2022 9 :38am 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 Yes March 04, 2022 9:38am Advance Directive Response Recorded Date/ Time Living Will Yes March 04, 2022 8 :38am 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 Yes March 04, 2022 8:38am Summary Purpose Additional Source Comments Goals (unrecognized section and content) Goals may be documented in a n alternate sectionGoals may be documented in an alternate sectionGoals may be documented in an alternate sectionGoals may be documented in an alternate sectionGoals may be documented in an alternate section Care Teams (unrecognized sec tion and content) Team Status: Active Member Role Status Dates Dr. Yung Myers , DO Family Provider Active Dr. Yung Myers , DO Primary Care Provider Active Team Status: Inactive Member Role Status Dates Dr. Yung Myers DO Primary Care Pr ovider, Attending Provider, Referring Provider Active Team Status: Active Member Role Status Dates Dr. Yung Myers DO Primary Care Pr ovider, Attending Provider, Referring Provider Active Emergency Physician Relationship Specialty Start Date End Date Yung Myers DO [address] [place] [address] PCP - General Family Medicine 10/01/24 Emergency Physician Relationship Specialty Start Date End Date Yung Myers DO [address] [place] [address] PCP - General Family Medicine 10/01/24 Emergency Physician Relationship Specialty Start Date End Date Yung Myers DO [address] [place] [address] PCP - General Family Medicine 10/01/24 Emergency Physician Relationship Specialty Start Date End Date Yung Myers DO [address] [place] [address] PCP - General Family Medicine 10/01/24 Emergency Physician Relationship Specialty Start Date End Date Yung Myers DO [address] [place] [address] PCP - General Family Medicine 10/01/24 Team Status: Inactive Member Role Status Dates Dr. Yung Myers DO Primary Care Provider Active Start: October 16, 2024 End: October 16, 2024 Dr. Yung Myers DO Attending Provider Active Start: October 16, 2024 End: October 16, 2024 Dr. Yung Myers DO Referring Provider Active Start: October 16, 2024 End: October 16, 2024 Team Status: Inactive Member Role Status Dates Dr. Yung Myers DO Attending Provider Active Start: January 14, 2025 End: January 14, 2025 Dr. Yung Myers DO Referring Provider Active Start: January 14, 2025 End: January 14, 2025 Source Comments (unrecognize d section and content) In the event this informatio n is protected by the Federal Confidentiality of Alcohol and Drug Abuse Patient Records regulations: The Federal rules restrict any use of the information to criminally investigate or prosecute any alcohol or drug abuse patient.[facility]In the event this information is protected by the Federal Confidentiality of Alcohol and Drug Abuse Patient Records regulations: The Federal rules restrict any use of the information to criminally investigate or prosecute any alcohol or drug abuse patient.[facility] SouthIn the event this information is protected by the Federal Confidentiality of Alcohol and Drug Abuse Patient Records regulations: The Federal rules restrict any use of the information to criminally investigate or prosecute any alcohol or drug abuse patient.[facility] SouthIn the event this information is protected by the Federal Confidentiality of Alcohol and Drug Abuse Patient Records regulations: The Federal rules restrict any use of the information to criminally investigate or prosecute any alcohol or drug abuse patient.[facility] SouthIn the event this information is protected by the Federal Confidentiality of Alcohol and Drug Abuse Patient Records regulations: The Federal rules restrict any use of the information to criminally investigate or prosecute any alcohol or drug abuse patient.[facility] SouthIn the event this information is protected by the Federal Confidentiality of Alcohol and Drug Abuse Patient Records regulations: The Federal rules restrict any use of the information to criminally investigate or prosecute any alcohol or drug abuse patient.[facility] SouthIn the event this information is protected by the Federal Confidentiality of Alcohol and Drug Abuse Patient Records regulations: The Federal rules restrict any use of the information to criminally investigate or prosecute any alcohol or drug abuse patient.[facility] SouthIn the event this information is protected by the Federal Confidentiality of Alcohol and Drug Abuse Patient Records regulations: The Federal rules restrict any use of the information to criminally investigate or prosecute any alcohol or drug abuse patient.[facility] SouthIn the event this information is protected by the Federal Confidentiality of Alcohol and Drug Abuse Patient Records regulations: The Federal rules restrict any use of the information to criminally investigate or prosecute any alcohol or drug abuse patient.[facility] Reason for Visit (unrecogniz ed section and content) Reason Comments Tearing Left Eye X 5 years, constant tearing. Not using any eye drops. Had a stint put in for 5 years, removed by Dr. Pace on 04/24/2024. Removed due to no longer working Reason Comments Tearing OS Left EndoDCR eval.Co nstant tearing OS. Had stent put in about 5 years ago, had it removed in March because it was not improving tearing. Not using gtts. Also noticing itching in inner corner OS Reason Comments Post Op Call Reason Comments Post Op S/P Left endoscopic Dacryocystorhinostomy (DCR) with stent placement 11/04/2024 Reason Comments Follow-up Cuff Repair Follow Up Reason Comments Post Op Reason Comments Post Op s/p left endo Dacryo cystorhinostomy (DCR) with guibor stent tied with 6- 0 plain gut on 11/04/24 Patient states there is no tearing but feels air coming out of tear duct OS, even seeing droplets on glasses when doing nasal rinse. INFORMATION SOURCE (unrecogn ized section and content) DATE CREATED AUTHOR 01/01/2025 [facility] DATE CREATED AUTHOR AUTHOR'S ORGANIZ ATION 01/25/2025 [facility] FOR RECORDS PERTAINING TO PATIENTS WHO ARE OR HAVE BEEN ENROLLED IN A CHEMICAL DEPENDENCY/SUBSTANCEABUSE PROGRAM, SOME INFORMATION MAY BE OMITTED. This clinical summary was aggregated from multiple sources. Caution should be exercised in using it in the provision of clinical care. This summary normalizes information from multiple sources, and as a consequence, information in this document may materially change the coding, format and clinical context of patient data. In addition, data may be omitted in some cases. CLINICAL DECISIONS SHOULD BE BASED ON THE PRIMARY CLINICAL RECORDS. [employer] [facility]. provides no warranty or guarantee of the accuracy or completeness of information in this document.
== END | disposition home or self-care (01) ==
PROVIDERS: PCP Family Medicine; Referring Provider Family Medicine; Visit Provider Family Medicine
DX: M81.0 Age-related osteoporosis without current pathological fracture (principal)
CPT/HCPCS: 77080

== ENCOUNTER → 2025-07-09 | Outpatient (CLI) | payer MEDICARE, OTHER, SELFPAY ==
[2025-07-09 13:06] LABS: AST(SGOT) 19 U/L (<=31); Alanine Aminotransfer ALT/SGPT 15 U/L (<=34); Albumin, Serum 4.5 g/dL (3.4-4.8); Alkaline Phosphatase 58 U/L (35-104); Anion Gap 11 (5-15); BUN 15 mg/dL (4-19); BUN/Creat Ratio 27.8 RATIO (10-20); Calcium,Total 9.7 mg/dL (7.6-11.0); Carbon Dioxide 26.2 mmol/L (21.0-32.0); Chloride 102 mmol/L (98-108); Cholesterol 250 mg/dL (<=200); Globulin 2.8 g/dL (2.2-4.2); Glucose 103 mg/dL (70-99); Low Density Lipoprotein Calc. 156 mg/dL; Potassium 4.2 mmol/L (3.3-5.1); Triglycerides 153 mg/dL; Very Low Density Lipoprotein 31 mg/dL (5-40); cholesterol:hdl ratio screen 3.75
== END | disposition home or self-care (01) ==
LOC: MTLAB 10:07
PROVIDERS: PCP Family Medicine; Referring Provider Family Medicine; Visit Provider Family Medicine
DX: I10 Essential (primary) hypertension (principal); E78.5 Hyperlipidemia, unspecified
CPT/HCPCS: 36415; 80053; 80061